=== PATIENT | female | born 1980 | race Caucasian/White ===

== ENCOUNTER 2020-05-28 17:47 | Inpatient (IN) | payer MEDICAID ==
[2020-05-28] MEDS ORDERED: METOCLOPRAMIDE 10 MG/2 ML INJ IV ONE (18:44)
[2020-05-28] MEDS ORDERED: BICITRA ORAL LIQD 30ML PO ONE (18:44)
[2020-05-28] MEDS ORDERED: FAMOTIDINE 20 MG/2 ML INJ IV ONE (18:44)
[2020-05-28] MEDS ORDERED: OXYTOCIN 20 UNIT/1000ML DRIP 20 UNITS/1,000 ML BAG IV SCH (19:00)
[2020-05-28] MEDS ORDERED: METHYLERGONOVINE MALEATE 0.2 MG/ML VIAL IM ONE ×2 (19:25)
[2020-05-28] MEDS ORDERED: ceFAZolin/STERILE WATER 2 GM/20 ML SYRINGE IV NR (20:00)
[2020-05-28] MEDS: LACTATED RINGERS 1,000 ML IV SCH ×2 (20:06→20:13)
--- NOTE | 2020-05-28 20:33 | History and Physical Report ---
History of Present Illness Date of examination: 05/28/20 Date of admission: May 28, 2020 Chief complaint: Spontaneous rupture of membranes at 37 weeks plus. History of present illness: previous sections. LEIGHTON June 12, 2020. Past History Past Surgical History: section - Obstetrical History Expected Date of Delivery: 06/12/20 Actual Gestation: 37 Week(s) 6 Day(s) : 6 Medications and Allergies Allergies Allergy/AdvReac Type Severity Reaction Status Date / Time No Known Allergies Allergy Verified 10/21/14 11:23 Home Medications Medication Instructions Recorded Confirmed Last Taken Type Iron 1 tab PO DAILY 10/21/14 05/28/20 05/24/20 21:00 History Ondansetron [Zofran] 4 mg PO Q6HR PRN 10/21/14 11/27/14 05/24/20 20:00 History Vits96/Iron Fum/Folic 1 each PO QDAY 10/21/14 05/28/20 05/24/20 History [ Tablet] Active Meds: Active Medications Cefazolin Sodium (Ancef/Sterile Water 2 Gm/20 Ml) 2 gm IV PREOP NR Stop: 05/29/20 06:00 Lactated Ringer's (Lactated Ringers) 1,000 mls @ 2,250 mls/hr IV PREOP ISAIAS Stop: 05/29/20 19:27 Last Admin: 05/28/20 20:13 Dose: 2,250 mls/hr Documented by: Oxytocin/Sodium Chloride (Pitocin/Ns 20 Unit/1000ml Drip) 20 units in 1,000 mls @ 0 mls/hr IV TITR ISAIAS Review of Systems All systems: negative - Vital Signs Vital signs: Vital Signs Pulse BP 78 114/72 05/28/20 18:09 05/28/20 18:09 Temp Pulse Resp BP Pulse Ox 97.6 F 76 18 123/77 96 05/28/20 18:40 05/28/20 20:20 05/28/20 18:40 05/28/20 20:15 05/28/20 20:20 - Physical Exam Lungs: Positive: Normal air movement Deep Tendon Reflex Grade: Normal +2 - Obstetrical FHR: auscultation normal Results All other labs normal. Assessment and Plan - Patient Problems (1) SROM (spontaneous rupture of membranes) Current Visit: Yes Status: Acute (2) Previous section Current Visit: No Status: Acute Plan to address problem: Patient will be delivered by section as soon as all arrangements are in place. All of patient's questions were answered. Potential for scar tissue formation and need for lysis of adhesions were discussed. Patient gave an informed consent for surgery.
[2020-05-28 20:37] LABS: Basophils # (Auto) 0.1 K/mm3 (0.0-0.1); Basophils % (Auto) 1.1 % (0.0-1.8); Eosinophils # (Auto) 0.2 K/mm3 (0.0-0.4); Eosinophils % (Auto) 1.5 % (0.0-4.3); Hematocrit 24.5 % (30.3-42.9); Lymphocytes # (Auto) 2.5 K/mm3 (1.2-5.4); Lymphocytes % (Auto) 21.5 % (13.4-35.0); Mean Corpuscular HGB Conc 33 % (30-34); Mean Corpuscular Volume 71 fl (79-97); Monocytes # (Auto) 1.3 K/mm3 (0.0-0.8); Monocytes % (Auto) 10.9 % (0.0-7.3); Platelet Count 220 K/mm3 (140-440); Red Blood Count 3.47 M/mm3 (3.65-5.03); Red Cell Distribution Width 15.8 % (13.2-15.2)
[2020-05-28] MEDS ORDERED: ONDANSETRON 4 MG/2 ML INJ ONE (23:45)
[2020-05-28] MEDS ORDERED: DEXMEDETOMIDINE 200 MCG/2 ML VIAL IV ONE (23:45)
[2020-05-28] MEDS ORDERED: KETOROLAC 30 MG/1 ML INJ ONE (23:45)
[2020-05-28] MEDS ORDERED: ceFAZolin/STERILE WATER 2 GM/20 ML SYRINGE IV ONE (23:50)
[2020-05-29] MEDS ORDERED: LANOLIN/ZINC/DIMETHICONE (LANSINOH) 7 GM TP PRN (00:27)
[2020-05-29] MEDS ORDERED: ONDANSETRON 4 MG/2 ML INJ IV PRN (00:27)
[2020-05-29] MEDS ORDERED: NALOXONE 0.4 MG/1 ML INJ IV PRN (00:27)
[2020-05-29] MEDS ORDERED: IBUPROFEN 800 MG TAB PO PRN (00:27)
[2020-05-29] MEDS ORDERED: WITCH HAZEL/ GLYCERIN PAD TP PRN (00:27)
--- NOTE | 2020-05-29 00:33 | Operative Report ---
Operative Report Operative Report: Date of surgery: May 28, 2020 Preoperative diagnoses: Spontaneous rupture of membranes at 38 weeks, 3 previous sections. Postoperative diagnoses: The same. Operation: Lower segment transverse delivery Surgeon:Leonila Quiles MD Sheet Metal Layout Mechanic: Leonila Cordova CRNA Anesthesia: Spinal block Estimated blood loss: 400 mL Complications: None Findings: There was a live baby girl in vertex presentation weight 6 pounds 4 ounces and 8/8 scores. The ovaries, fallopian tubes and the ut erus were all grossly normal. The urinary bladder was slightly pulled up against the lower uterine segment and proved difficult to free from a very thinned out lower uterine segment. Procedure in detail: The patient was taken to the operating room and given a spinal block. Patient was placed in the straight supine position and a Rand catheter was inserted. The patient was prepped in the abdomen. The drapes were placed. A timeout was done. With the go ahead from the retail sales associate bilingual, a Pfannenstiel incision was made. This incision was carried across the subcutaneous layer to the fascia which was also divided transversely. The recti abdominis muscle flaps were stripped from the fascia using a combination of blunt and sharp dissections. The muscles were in the midline to gain access to the anterior parietal peritoneum which was divided after excluding any underlying viscera. The access to the peritoneal cavity was then widened by manual stretching. The bladder blade was applied. The utero vesicle peritoneal flap was divided transversely allowing the bladder to be displaced caudally. The uterine incision was placed in the lower segment transversely. The uterine incision was carried to the decidual layer. The uterine incision was extended on both sides using the bandage scissors. The amniotic sac was ruptured with clear fluid. The head was lifted out of the false maternal pelvis and delivered through the incision using fundal pressure. The airways were bulb suctioned beginning with the mouth. Continuing fundal pressure combined with traction on the mandibular processes of the jaw delivered the rest of the baby. The umbilical cord was double clamped and divided. The baby was carefully transferred to the pediatric team. The placenta was manually removed from the uterine cavity. The uterine cavity was explored and was empty of any placental remnants. The uterine incision was repaired in 2 layers with #1 Vicryl. The surgical line on the uterus was hemostatic. Blood and clots were cleared from the peritoneal cavity. The anterior parietal peritoneum was repaired with #1 Vicryl. The fascia was repaired with #1 Vicryl. The subcutaneous layer was made hemostatic using the Bovie before the skin was closed subcuticularly with 4-0 Vicryl. There were no complications. The estimated blood loss was 400 mL. All sponges and instrument counts were correct. Patient was safely transferred to the recovery room.
--- NOTE | 2020-05-29 00:43 | Post Anesthesia Evaluation ---
- Post Anesthesia Evaluation Patient Participated: Yes Airway Patent: Yes Stable Respiratory Function: Yes Nausea/Vomiting: No Temp > 96.8F: Yes Pain Manageable: Yes Adequeate Hydration: Yes Anesthesia Complications: No Block Receding Appropriately: Yes
--- NOTE | 2020-05-29 00:43 | Anesthesia Day of Surgery ---
Anesthesia Day of Surgery - Day of Surgery Patient Examined: Yes Patient H&P Reviewed: Yes Patient is NPO: Yes
--- NOTE | 2020-05-29 00:43 | Anesthesia Consultation ---
Anesthesia Consult and Med Hx Date of service: 05/29/20 - Airway Anesthetic Teeth Evaluation: Good ROM Head & Neck: Adequate Mental/Hyoid Distance: Adequate Mallampati Class: Class II Intubation Access Assessment: Probably Good - Pulmonary Exam CTA: Yes - Cardiac Exam Cardiac Exam: RRR - Pre-Operative Health Status ASA Pre-Surgery Classification: ASA2 Proposed Anesthetic Plan: Spinal - Pulmonary Hx Asthma: No COPD: No Hx Pneumonia: No - Cardiovascular System Hx Hypertension: No - Central Nervous System Hx Seizures: No Hx Psychiatric Problems: No - Endocrine Hx Renal Disease: No Hx Hypothyroidism: No Hx Hyperthyroidism: No - Hematic Hx Anemia: No Hx Sickle Cell Disease: No - Other Systems Hx Alcohol Use: No
[2020-05-29] MEDS: MORPHINE 4 MG/1 ML INJ IV PRN ×3 (00:58→23:50)
[2020-05-29] MEDS ORDERED: D5W/LACTATED RINGERS 1,000 ML IV SCH (01:00)
[2020-05-29] MEDS ORDERED: OXYTOCIN 20 UNIT/1000ML DRIP 20 UNITS/1,000 ML BAG IV SCH ×2 (01:00→16:37)
[2020-05-29] MEDS: KETOROLAC 30 MG/1 ML INJ IV PRN ×2 (03:06→08:25)
[2020-05-29] MEDS: ceFAZolin/NS 1 GM/50 ML 1 GM/50 ML BAG IV SCH ×2 (03:16→20:40)
[2020-05-29] MEDS ORDERED: SODIUM CHLORIDE 0.9% 500 ML 500 ML IV ONE ×3 (05:12→09:42)
[2020-05-29 05:33] LABS: Hematocrit 15.5 % (30.3-42.9)
[2020-05-29] MEDS ORDERED: METHYLERGONOVINE MALEATE 0.2 MG/ML VIAL IM ONE ×2 (05:34→05:49)
[2020-05-29 07:22] LABS: Hematocrit 23.8 % (30.3-42.9); Hemoglobin 7.9 gm/dl (10.1-14.3)
[2020-05-29] MEDS: 1: FOLIC ACID 1 MG, MULTIPLE VITAMIN INJ, ADULT 10 ML, THIAMINE 100 MG in SODIUM CHLORID IV SCH ×3 (07:49→16:43)
[2020-05-29] MEDS ORDERED: OXYTOCIN 20 UNIT/1000ML DRIP 0 MILLIUNITS/0 ML BAG IV ONE (09:35)
[2020-05-29] MEDS ORDERED: METHYLERGONOVINE MALEATE 0.2 MG/ML VIAL IM PRN (09:43)
[2020-05-29] MEDS ORDERED: METHYLERGONOVINE MALEATE 0.2 MG/ML VIAL IM SCH (10:00)
[2020-05-29] MEDS ORDERED: SODIUM CHLORIDE 0.9% 500 ML 500 ML IV NR (11:45)
[2020-05-29] MEDS ORDERED: SODIUM CHLORIDE 0.9% 500 ML 500 ML IV SCH ×3 (12:00→16:05)
[2020-05-29] MEDS ORDERED: FUROSEMIDE 20 MG/2 ML INJ IV ONE (13:00)
--- NOTE | 2020-05-29 15:39 | Event Note ---
Date: 05/29/20 I was called from the floor by Dinorah Dennis CNM at 11:20 for report on the patient. She reported the patient to be hypotensive and diaphoretic and asked for my immediate evaluation. I presented from the office within 10 minutes. At bedside, with Ms Dennis. patient was hyper-somnolent but easily arousable, oriented to person , place and time. Her nurse was at bedside. BP 85/50, P111 Urine output: 125cc clear since her operative delivery last night (minimal,concentrated) I ordered patient to have O2 per face mask and asked the nurse to please call for help. I ordered a second IV for access. I ordered patient to be transfused another three units of PRBC's STAT. A third provider went to the blood bank for a unit of PRBC's immediately. I ordered patient to have LR IV bolus in second IV immediately. I ordered continuous pulse ox and BP's Q5 minutes. We were unable to obtain a body temp at bedside. Peripheral pulses thready but present bilaterally. PE revealed a firm fundus I removed the wound dressing and her pfannenstiel incision was dry. Bimanual revealed about 250ml blood clot in the uterus She was transferred to labor and delivery. Her third unit of blood was hanging prior to transfer. On labor and delivery with at least 1:1 nursing and myself at bedside continuously: PRBCs transfused x 6 units 1 liter LR bolus then 10mg Lasix IV given; after ~30 minutes 300ml clear urine noted in the stewart catheter. Cryoprecipitate transfused after 6th unit PRBCs Fluids running wide open Methergine 0.2mg given IMx1 dose. LR changed to oxytocin 20 units in 1000ml NS After the fifth unit or PRBC"s persistent atony and large VB noted to ~1000ml. At this point I paged IR for UAE and possible hysterectomy CMC,CMP and coags sent Dr Angel at bedside to consent patient within minutes of our phone conversation. Anesthesia at bedside. Patient hemodynamically stable: BP 130/77, P76 Temp 98.1,O2 sat 100% on room air. Leonila Ordoñez MD
[2020-05-29] MEDS: fentaNYL 100 MCG/2 ML INJ IV PRN (16:06)
[2020-05-29] MEDS ORDERED: miSOPROStol 200 MCG TAB PR ONE (16:15)
--- NOTE | 2020-05-29 16:15 | Event Note ---
Date: 05/29/20 I was called to the room for large clots expressed total weight 419ftn=673.15 ML intermittent atony Plan for interventional radiology for UAE Cytotec 800m,cg per rectum Leonila Ordoñez MD
[2020-05-29] MEDS ORDERED: miSOPROStol 200 MCG TAB ONE (16:19)
[2020-05-29] MEDS ORDERED: OXYTOCIN 10 UNIT/1 ML INJ ONE (16:38)
[2020-05-29] MEDS ORDERED: OXYTOCIN 10 UNIT/1 ML INJ IM ONE (16:38)
[2020-05-29 17:05] LABS: Hematocrit 28.4 % (30.3-42.9); Hemoglobin 9.5 gm/dl (10.1-14.3); Mean Corpuscular HGB Conc 33 % (30-34); Mean Corpuscular Volume 85 fl (79-97); Red Blood Count 3.33 M/mm3 (3.65-5.03); Red Cell Distribution Width 18.7 % (13.2-15.2)
[2020-05-29] MEDS ORDERED: MIDAZOLAM 5 MG/5 ML INJ MDV IV ONE (17:10)
[2020-05-29] MEDS ORDERED: fentaNYL 100 MCG/2 ML INJ ONE (17:10)
[2020-05-29 17:18] LABS: Alanine Aminotransferase 8 units/L (7-56); Albumin 2.6 g/dL (3.9-5); BUN/Creatinine Ratio 16; Blood Urea Nitrogen 11 mg/dL (7-17); Calcium 6.9 mg/dL (8.4-10.2); Hemolysis Index 8; INR 1.18 (0.87-1.13)
[2020-05-29 17:19] LABS: Partial Thromboplastin Time 27.3 Sec. (24.2-36.6)
[2020-05-29] MEDS: HEPARIN/NS 5000 UNIT/500ML 500 ML IR ONE ×2 (17:20→17:52)
[2020-05-29 17:24] LABS: Platelet Count 67 K/mm3 (140-440)
[2020-05-29] MEDS: LIDOCAINE (2%) 20 MG/1 ML VIAL 20 ML MDV INFILTRATI ONE ×3 (17:25→18:19)
[2020-05-29] MEDS ORDERED: ceFAZolin/STERILE WATER 2 GM/20 ML SYRINGE IV ONE (17:25)
[2020-05-29] MEDS: VERAPAMIL 5 MG/2 ML INJ ONE ×2 (17:27→17:57)
[2020-05-29] MEDS: NITROGLYCERIN SYRINGE 3 ML ONE ×2 (17:27→17:45)
[2020-05-29] MEDS: GELATIN SPONGE SIZE 50 TP ONE ×2 (17:45→17:51)
[2020-05-29] MEDS ORDERED: GELATIN SPONGE SIZE 50 TP ONE (17:52)
[2020-05-29] MEDS ORDERED: MIDAZOLAM 2 MG/2 ML INJ ONE (18:06)
--- NOTE | 2020-05-29 18:44 | Consultation ---
History of Present Illness - Reason for Consult Consult date: 05/29/20 bleeding Requesting physician: ALTON DURAN - History of Present Illness 39 year old female s/p C section with multiple prior C sections with uterine atony and bleeding. Patient required multiple packed red blood cell unit transfusions and previously was hypotensive, tachycardic, with hemoglobin of 5. She was resuscitated with blood products. She then began having uterine/vaginal bleeding. Interventional radiology was then consulted for possible uterine artery embolization. previous sections. Past History Past Surgical History: section - Obstetrical History Expected Date of Delivery: 06/12/20 Actual Gestation: 37 Week(s) 6 Day(s) : 6 Past History Past Medical History: No medical history Past Surgical History: Social history: Family history: no significant family history Medications and Allergies Allergies Allergy/AdvReac Type Severity Reaction Status Date / Time No Known Allergies Allergy Verified 10/21/14 11:23 Home Medications Medication Instructions Recorded Confirmed Last Taken Type Iron 1 tab PO DAILY 10/21/14 05/28/20 05/24/20 21:00 History Ondansetron [Zofran] 4 mg PO Q6HR PRN 10/21/14 11/27/14 05/24/20 20:00 History Vits96/Iron Fum/Folic 1 each PO QDAY 10/21/14 05/28/20 05/24/20 History [ Tablet] HYDROcodone/APAP 5-325 [[place] 1 - 2 each PO Q6HR PRN #30 tablet 05/28/20 Unknown Rx 5/325] Active Meds: Active Medications Acetaminophen (Tylenol) 650 mg PO Q4H PRN PRN Reason: Fever >100.5/[place] Acetaminophen/Hydrocodone Bitart ([place] 5/325) 1 each PO Q6H PRN PRN Reason: Pain, Moderate (4-6) Fentanyl (Sublimaze) 50 mcg IV Q4HR PRN PRN Reason: Pain, Moderate (4-6) Last Admin: 05/29/20 16:06 Dose: 50 mcg Documented by: Ferrous Sulfate (Feosol) 325 mg PO QDAY [facility] Folic Acid 1 mg/ Multivitamins /Minerals 10 ml/ Thiamine HCl 100 mg/ Sodium Chloride 1,000 mls @ 125 mls/hr IV .BY DURATION [facility] Last Admin: 05/29/20 07:49 Dose: 125 mls/hr Documented by: Sodium Chloride (Nacl 0.9% 1000 Ml) 1,000 mls @ 125 mls/hr IV .BY DURATION [facility] Last Admin: 05/29/20 16:43 Dose: 125 mls/hr Documented by: Sodium Chloride (Nacl 0.9% 500 Ml) 500 mls @ 0 mls/hr IV ONCE NR Stop: 05/29/20 23:59 Sodium Chloride (Nacl 0.9% 1000 Ml) 1,000 mls @ 125 mls/hr IV DIRECT ISAIAS Sodium Chloride (Nacl 0.9% 500 Ml) 500 mls @ 0 mls/hr IV ONCE ISAIAS Stop: 05/30/20 16:03 Sodium Chloride (Nacl 0.9% 500 Ml) 500 mls @ 0 mls/hr IV ONCE ISAIAS Stop: 05/30/20 16:04 Oxytocin/Sodium Chloride (Pitocin/Ns 20 Unit/1000ml Drip) 20 units in 1,000 mls @ 250 mls/hr IV DIRECT ISAIAS Ibuprofen (Ibuprofen) 800 mg PO Q6H PRN PRN Reason: Pain, Mild (1-3) Ketorolac Tromethamine (Toradol) 30 mg IV Q6H PRN PRN Reason: Pain, Moderate (4-6) Stop: 06/03/20 00:26 Last Admin: 05/29/20 08:25 Dose: 30 mg Documented by: Methylergonovine Maleate (Methergine) 0.2 mg IM Q4H PRN PRN Reason: Uterine Bleeding Last Admin: 05/29/20 10:36 Dose: 0.2 mg Documented by: Morphine Sulfate (Morphine) 4 mg IV Q4H PRN PRN Reason: Pain , Severe (7-10) Last Admin: 05/29/20 00:58 Dose: 4 mg Documented by: Multi-Ingredient Ointment (Lansinoh) 1 applic TP PRN PRN PRN Reason: dryness/cracking Multivitamins/Iron/Calcium ( Vitamin) 1 each PO QDAY [facility] Naloxone HCl (Naloxone) 0.1 mg IV Q2MIN PRN PRN Reason: Res Rate </= 8 or 02 SAT < 92% Ondansetron HCl (Zofran) 4 mg IV Q8H PRN PRN Reason: Nausea And Vomiting Sodium Chloride (Sodium Chloride Flush Syringe 10 Ml) 10 ml IV PRN PRN PRN Reason: LINE FLUSH Witch Lauren/Glycerin (Tucks Pad) 1 each TP PRN PRN PRN Reason: Hemorrhoids/cleansing/soothing Review of Systems All systems: negative (see HPI) Exam - Constitutional Vitals: Temp Pulse Resp BP Pulse Ox 98.1 F 79 16 130/78 100 05/29/20 16:25 05/29/20 16:55 05/29/20 16:25 05/29/20 16:55 05/29/20 16:54 General appearance: Present: no acute distress - EENT Eyes: Present: EOM intact ENT: hearing intact - Respiratory Respiratory effort: normal - Abdominal General gastrointestinal: Present: tender (abdominal pain) - Psychiatric Psychiatric: appropriate mood/affect, cooperative Results - Labs CBC & Chem 7: 05/29/20 16:29 05/29/20 16:29 Labs: Abnormal lab results 05/28/20 05/28/20 05/29/20 Range/Units 19:45 19:45 05:20 WBC 11.5 H (4.5-11.0) K/mm3 RBC 3.47 L (3.65-5.03) M/mm3 Hgb 8.0 L 5.0 L* D (10.1-14.3) gm/dl Hct 24.5 L 15.5 L* D (30.3-42.9) % MCV 71 L (79-97) fl MCH 23 L (28-32) pg RDW 15.8 H (13.2-15.2) % Plt Count (140-440) K/mm3 [place] % (Auto) 10.9 H (0.0-7.3) % [place] # 1.3 H (0.0-0.8) K/mm3 INR (0.87-1.13) Fibrinogen (211-480) mg/dl Sodium (137-145) mmol/L Carbon Dioxide (22-30) mmol/L Calcium (8.4-10.2) mg/dL Total Protein (6.3-8.2) g/dL Albumin (3.9-5) g/dL Crossmatch See Detail 05/29/20 05/29/20 05/29/20 Range/Units 06:45 16:29 16:29 WBC 29.1 H (4.5-11.0) K/mm3 RBC 3.33 L (3.65-5.03) M/mm3 Hgb 7.9 L 9.5 L (10.1-14.3) gm/dl Hct 23.8 L D 28.4 L (30.3-42.9) % MCV (79-97) fl MCH (28-32) pg RDW 18.7 H (13.2-15.2) % Plt Count 67 L (140-440) K/mm3 [place] % (Auto) (0.0-7.3) % [place] # (0.0-0.8) K/mm3 INR 1.18 H (0.87-1.13) Fibrinogen 167 L (211-480) mg/dl Sodium (137-145) mmol/L Carbon Dioxide (22-30) mmol/L Calcium (8.4-10.2) mg/dL Total Protein (6.3-8.2) g/dL Albumin (3.9-5) g/dL Crossmatch 05/29/20 Range/Units 16:29 WBC (4.5-11.0) K/mm3 RBC (3.65-5.03) M/mm3 Hgb (10.1-14.3) gm/dl Hct (30.3-42.9) % MCV (79-97) fl MCH (28-32) pg RDW (13.2-15.2) % Plt Count (140-440) K/mm3 [place] % (Auto) (0.0-7.3) % [place] # (0.0-0.8) K/mm3 INR (0.87-1.13) Fibrinogen (211-480) mg/dl Sodium 134 L (137-145) mmol/L Carbon Dioxide 19 L (22-30) mmol/L Calcium 6.9 L D (8.4-10.2) mg/dL Total Protein 4.1 L D (6.3-8.2) g/dL Albumin 2.6 L (3.9-5) g/dL Crossmatch Assessment and Plan 39-year-old female with severe hemorrhage after c section requiring resuscitation and subsequently IR was consulted. Given bleeding, options are hysterectomy (emergent) or UAE with gelfoam. R/B/A discussed with patient. Gelfoam UAE decided upon with input from VTC TECHNICIAN, patient, and IR. Plan for embolization. Post embolization syndrome can consist of abdominal pain managed with opiates, low grade fever, and nausea/vomiting.
[2020-05-29] MEDS ORDERED: HYDROmorphone 1 MG/1 ML INJ ONE (18:46)
--- NOTE | 2020-05-29 18:54 | Post Operative Note ---
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 Ultrasound guided access of the left radial artery. 2. Selection of the left internal iliac artery with angiography 3. Selection of the left uterine artery with angiography 4. Gelfoam embolization of the left uterine artery. 5. Selection of the right common iliac artery with angiography 6. Selection of the right internal iliac artery with angiography 7. Selection of the right uterine artery with angiography 8. Gelfoam embolization of the right uterine artery 9. Ultrasound guided access of the left common femoral vein 10. Fluoroscopic guided placement of a 7 Fr triple lumen catheter Anesthesia: MAC Surgeon: MAY CAMERON Estimated blood loss: minimal Condition: stable Disposition: ICU
--- NOTE | 2020-05-29 18:54 | Operative Report ---
Operative Report Operative Report: EXAM: 1. Ultrasound guided access of the left radial artery. 2. Selection of the left internal iliac artery with angiography 3. Selection of the left uterine artery with angiography 4. Gelfoam embolization of the left uterine artery. 5. Selection of the right common iliac artery with angiography 6. Selection of the right internal iliac artery with angiography 7. Selection of the right uterine artery with angiography 8. Gelfoam embolization of the right uterine artery 9. Ultrasound guided access of the left common femoral vein 10. Fluoroscopic guided placement of a 7 Fr triple lumen catheter DATE: 05/29/2820 CASH CHECKER: MAY CAMERON MD INDICATION: Severe hemorrhage with severe anemia with hemodynamic compromise, successfully resuscitated, and now presenting for uterine artery embolization to prevent further hemorrhage. MEDICATIONS: Please see nursing report for full details. ANESTHESIA: MAC DEVICES: Gelfoam 7 [place] triple-lumen non-tunneled non-cuffed catheter CONTRAST: Please see Quality Assurance Test Program Manager notes for full details. PROCEDURE: The risks, benefits, and alternatives were discussed with the patient; written informed consent was obtained. The patient's groins and left wrist were prepped and draped in a sterile fashion. The left radial artery was evaluated with ultrasound and was patent. Under direct ultrasound guidance, the left radial artery was accessed with a 21-gauge micropuncture needle. 0.018 inch wire was passed into the radial artery. Needle was exchanged for a 4/5 glidesheath slender sheath. Radial cocktail was then administered without the heparin (verapamil and nitroglycerin). At this point, a 0.035 inch wire was passed into the ascending thoracic aorta and a pigtail catheter was advanced over the wire and used to pass the wire into the descending thoracic aorta. Pigtail catheter was removed and exchanged for a 125 cm MPA 2 catheter which was then used to select the left internal iliac artery and digital subtraction angiography was performed. Digital subtraction angiography demonstrated normal branching of the internal iliac artery with a significantly hypertrophic uterine artery compatible with immediate state. There was significant tortuosity of the uterine arteries. Renegade Hi-PILAR microcatheter was then passed coaxially with the use of a 0.014 inch Choice PT floppy wire which was then used to select the left uterine artery at the horizontal portion of the vessel. Digital subtraction angiography was p erformed confirming position within the left uterine artery which was significantly hypertrophic with robust flow. No extravasation or pseudoaneurysm noted. Gelfoam embolization was performed and intermittent injections were performed until there was stasis of the left uterine artery. After this was achieved, the microcatheter was removed, and digital subtraction angiography through the base catheter demonstrated sluggish flow through the left uterine artery consistent with Gelfoam embolization. At this point, the base catheter was then used to select the right common iliac artery and digital subtraction angiography was performed demonstrating patency of the right common iliac artery, external iliac artery, and internal iliac artery with takeoff of the internal iliac artery noted. Catheter was used to select the right internal iliac artery and digital subtraction angiography was noted demonstrating relatively normal branching pattern with a hypertrophic uterine artery with a pseudoaneurysm arising from the proximal uterine artery approximately 15 to 20 cm after takeoff. Renegade Hi-PILAR microcatheter was then passed coaxially with the use of a 0.014 inch Choice PT floppy wire which was then used to select the right uterine artery at the horizontal portion of the vessel. Digital subtraction angiography was performed confirming position within the right uterine artery again demonstrating the right uterine artery pseudoaneurysm. Gelfoam embolization was then performed until complete stasis of the vessel was achieved. This was done due to the proximal right uterine essie ry pseudoaneurysm noted above. There was stasis of the right uterine artery proximal and distal to the pseudoaneurysmal segment. After stasis of the uterine artery was obtained, the microcatheter was removed. Digital subtraction angiography was performed to the base catheter demonstrating complete stasis of the right uterine artery. At this point, the intervention was complete. The catheter was flushed with saline, and all wires, catheters, and sheaths were removed and TR band was applied. The left groin was evaluated with ultrasound and the left common femoral vein was patent. Under direct ultrasound guidance, the left common femoral vein was accessed with a 21-gauge micropuncture needle. 0.018 inch wire was passed into the IVC. Needle was exchanged for transitional dilator. Wire was exchanged for a 0.035 inch wire. Transitional dilator was exchanged for a 7 [place] non- tunneled non-cuffed triple-lumen catheter after serial dilatation. Catheter was placed under fluoroscopic guidance. All ports were aspirated and flushed. Catheter was secured with 2-0 Ethilon. Sterile dressing and Biopatch applied. At this point, the patient was transferred to the ICU. Patient tolerated procedure well. No immediate postprocedural complication. FINDINGS: Please see procedure note above. IMPRESSION: Successful Gelfoam embolization of the bilateral uterine arteries with bilateral uterine artery selection. Successful left triple-lumen catheter placement under fluoroscopic and sonographic guidance.
[2020-05-29 19:58] LABS: Basophils % (Manual) 0 % (0.0-1.8); Eosinophils % (Manual) 0 % (0.0-4.3); Total Cells Counted 100
[2020-05-29 19:59] LABS: Macrocytosis Few; Schistocytes Rare
--- NOTE | 2020-05-29 19:59 | Event Note ---
Date: 05/29/20 Stable to ICU after UAE See Dr Angel's operative report Report given to ICU nurse plan for transfusion of FFP then repeat labs Hold remaining blood products. Pt AAOx3, hemodynamically stable Plan for pain control, close monitoring. Leonila Ordoñez MD
[2020-05-29 20:00] LABS: Anisocytosis 1+; Platelet Estimate Consistent w Auto; Tear Drop Cells Rare
[2020-05-29] MEDS: PRENATAL VIT27-FE FUMARATE-FOLIC ACID VIT TAB PO SCH (20:42)
[2020-05-29] MEDS: FERROUS SULFATE 325 MG TAB PO SCH (20:42)
--- NOTE | 2020-05-29 20:52 | Post Anesthesia Evaluation ---
- Post Anesthesia Evaluation Patient Participated: Yes Airway Patent: Yes Stable Respiratory Function: Yes Nausea/Vomiting: No Temp > 96.8F: Yes Pain Manageable: Yes Adequeate Hydration: Yes Anesthesia Complications: No Block Receding Appropriately: Not Applicable Patient on Ventilator: No
[2020-05-30] MEDS: SODIUM CHLORIDE 0.9% 1000 ML 1,000 ML IV SCH ×2 (00:49→00:51)
[2020-05-30] MEDS: OXYTOCIN 20 UNIT/1000ML DRIP 20 UNITS/1,000 ML BAG IV SCH ×2 (00:50→09:02)
[2020-05-30] MEDS: 1: FOLIC ACID 1 MG, MULTIPLE VITAMIN INJ, ADULT 10 ML, THIAMINE 100 MG in SODIUM CHLORID IV SCH ×3 (00:52→18:49)
[2020-05-30 01:07] LABS: Hematocrit 21.3 % (30.3-42.9); Hemoglobin 7.2 gm/dl (10.1-14.3)
[2020-05-30] MEDS: MORPHINE 4 MG/1 ML INJ IV PRN ×4 (04:33→18:48)
[2020-05-30 07:17] LABS: Basophils % (Auto) 0.1 % (0.0-1.8); Hematocrit 20.6 % (30.3-42.9); Hemoglobin 6.8 gm/dl (10.1-14.3); Lymphocytes # (Auto) 1.3 K/mm3 (1.2-5.4); Lymphocytes % (Auto) 6.7 % (13.4-35.0); Mean Corpuscular HGB Conc 33 % (30-34); Mean Corpuscular Volume 85 fl (79-97); Monocytes # (Auto) 1.8 K/mm3 (0.0-0.8); Monocytes % (Auto) 9.1 % (0.0-7.3); Red Blood Count 2.42 M/mm3 (3.65-5.03); Red Cell Distribution Width 17.7 % (13.2-15.2)
[2020-05-30 07:28] LABS: Platelet Count 59 K/mm3 (140-440)
[2020-05-30 07:36] LABS: Alanine Aminotransferase 6 units/L (7-56); Albumin 2.4 g/dL (3.9-5); BUN/Creatinine Ratio 13; Blood Urea Nitrogen 8 mg/dL (7-17); Calcium 6.7 mg/dL (8.4-10.2); Hemolysis Index 9
[2020-05-30] MEDS ORDERED: SODIUM CHLORIDE 0.9% 500 ML 500 ML IV NR (07:47)
[2020-05-30] MEDS: HYDROcodone/ACETAMINOPHEN 5-325 MG TAB PO PRN ×2 (08:27→17:17)
[2020-05-30] MEDS: levoFLOXacin 500 MG TAB PO SCH (09:00)
[2020-05-30] MEDS: FERROUS SULFATE 325 MG TAB PO SCH (09:00)
[2020-05-30] MEDS: PRENATAL VIT27-FE FUMARATE-FOLIC ACID VIT TAB PO SCH (09:01)
--- NOTE | 2020-05-30 13:28 | Consultation ---
History of Present Illness Consult date: 05/30/20 Requesting physician: MAY CAMERON Reason for consult: other (Acute Blood Loss Anemia; s/p Uteriune Artery Embolization) History of present illness: PCCM CONSULT NOTE (Full dictation # [id number]) Please see dictated notes for full details Past History Past Medical History: No medical history Past Surgical History: Social history: Family history: no significant family history Medications and Allergies Allergies Allergy/AdvReac Type Severity Reaction Status Date / Time No Known Allergies Allergy Verified 10/21/14 11:23 Home Medications Medication Instructions Recorded Confirmed Last Taken Type Iron 1 tab PO DAILY 10/21/14 05/28/20 05/24/20 21:00 History Ondansetron [Zofran] 4 mg PO Q6HR PRN 10/21/14 11/27/14 05/24/20 20:00 History Vits96/Iron Fum/Folic 1 each PO QDAY 10/21/14 05/28/20 05/24/20 History [ Tablet] HYDROcodone/APAP 5-325 [[place] 1 - 2 each PO Q6HR PRN #30 tablet 05/28/20 Unknown Rx 5/325] Active Meds: Active Medications Acetaminophen (Tylenol) 650 mg PO Q4H PRN PRN Reason: Fever >100.5/[place] Acetaminophen/Hydrocodone Bitart ([place] 5/325) 1 each PO Q6H PRN PRN Reason: Pain, Moderate (4-6) Last Admin: 05/30/20 08:27 Dose: 1 each Documented by: Fentanyl (Sublimaze) 50 mcg IV Q4HR PRN PRN Reason: Pain, Moderate (4-6) Last Admin: 05/29/20 16:06 Dose: 50 mcg Documented by: Ferrous Sulfate (Feosol) 325 mg PO QDAY [facility] Last Admin: 05/30/20 09:00 Dose: 325 mg Documented by: Folic Acid 1 mg/ Multivitamins /Minerals 10 ml/ Thiamine HCl 100 mg/ Sodium Chloride 1,000 mls @ 125 mls/hr IV .BY DURATION [facility] Last Admin: 05/30/20 10:29 Dose: 125 mls/hr Documented by: Sodium Chloride (Nacl 0.9% 1000 Ml) 1,000 mls @ 125 mls/hr IV .BY DURATION [facility] Last Admin: 05/30/20 00:52 Dose: Not Given Documented by: Sodium Chloride (Nacl 0.9% 1000 Ml) 1,000 mls @ 125 mls/hr IV DIRECT [facility] Last Admin: 05/30/20 00:51 Dose: 125 mls/hr Documented by: Oxytocin/Sodium Chloride (Pitocin/Ns 20 Unit/1000ml Drip) 20 units in 1,000 mls @ 125 mls/hr IV DIRECT ISAIAS Last Admin: 05/30/20 09:02 Dose: 125 mls/hr Documented by: Sodium Chloride (Nacl 0.9% 500 Ml) 500 mls @ 0 mls/hr IV ONCE NR Stop: 05/30/20 23:59 Last Admin: 05/30/20 08:29 Dose: 10 mls/hr Documented by: Ibuprofen (Ibuprofen) 800 mg PO Q6H PRN PRN Reason: Pain, Mild (1-3) Levofloxacin (Levaquin) 500 mg PO Q24HR [facility] Last Admin: 05/30/20 09:00 Dose: 500 mg Documented by: Methylergonovine Maleate (Methergine) 0.2 mg IM Q4H PRN PRN Reason: Uterine Bleeding Last Admin: 05/29/20 10:36 Dose: 0.2 mg Documented by: Morphine Sulfate (Morphine) 4 mg IV Q4H PRN PRN Reason: Pain , Severe (7-10) Last Admin: 05/30/20 10:28 Dose: 4 mg Documented by: Multi-Ingredient Ointment (Lansinoh) 1 applic TP PRN PRN PRN Reason: dryness/cracking Multivitamins/Iron/Calcium ( Vitamin) 1 each PO QDAY [facility] Last Admin: 05/30/20 09:01 Dose: 1 each Documented by: Naloxone HCl (Naloxone) 0.1 mg IV Q2MIN PRN PRN Reason: Res Rate </= 8 or 02 SAT < 92% Ondansetron HCl (Zofran) 4 mg IV Q8H PRN PRN Reason: Nausea And Vomiting Sodium Chloride (Sodium Chloride Flush Syringe 10 Ml) 10 ml IV PRN PRN PRN Reason: LINE FLUSH Witch Lauren/Glycerin (Tucks Pad) 1 each TP PRN PRN PRN Reason: Hemorrhoids/cleansing/soothing Physical Examination Vital signs: Vital Signs Pulse BP 78 114/72 05/28/20 18:09 05/28/20 18:09 Results - Laboratory Findings CBC and BMP: 05/30/20 06:00 05/30/20 06:00 PT/INR, D-dimer PT 14.8 Sec. (12.2-14.9) 05/29/20 16:29 INR 1.18 (0.87-1.13) H 05/29/20 16:29 Abnormal lab findings: Abnormal Labs 05/28/20 05/28/20 05/29/20 19:45 19:45 05:20 WBC 11.5 H RBC 3.47 L Hgb 8.0 L 5.0 L* D Hct 24.5 L 15.5 L* D MCV 71 L MCH 23 L RDW 15.8 H Plt Count Lymph % (Auto) [place] % (Auto) 10.9 H [place] # 1.3 H Seg Neutrophils % Seg Neuts % (Manual) Lymphocytes % (Manual) Seg Neutrophils # Seg Neutrophils # Man Monocytes # (Manual) INR Fibrinogen Sodium Carbon Dioxide Creatinine Glucose Calcium ALT Total Protein Albumin Crossmatch See Detail 05/29/20 05/29/20 05/29/20 06:45 16:29 16:29 WBC 29.1 H RBC 3.33 L Hgb 7.9 L 9.5 L Hct 23.8 L D 28.4 L MCV MCH RDW 18.7 H Plt Count 67 L Lymph % (Auto) [place] % (Auto) [place] # Seg Neutrophils % Seg Neuts % (Manual) 89.0 H Lymphocytes % (Manual) 4.0 L Seg Neutrophils # Seg Neutrophils # Man 25.9 H Monocytes # (Manual) 1.7 H INR 1.18 H Fibrinogen 167 L Sodium Carbon Dioxide Creatinine Glucose Calcium ALT Total Protein Albumin Crossmatch 05/29/20 05/30/20 05/30/20 16:29 00:50 06:00 WBC 20.0 H RBC 2.42 L Hgb 7.2 L 6.8 L Hct 21.3 L D 20.6 L MCV MCH RDW 17.7 H Plt Count 59 L Lymph % (Auto) 6.7 L [place] % (Auto) 9.1 H [place] # 1.8 H Seg Neutrophils % 84.1 H Seg Neuts % (Manual) Lymphocytes % (Manual) Seg Neutrophils # 16.9 H Seg Neutrophils # Man Monocytes # (Manual) INR Fibrinogen Sodium 134 L Carbon Dioxide 19 L Creatinine Glucose Calcium 6.9 L D ALT Total Protein 4.1 L D Albumin 2.6 L Crossmatch 05/30/20 06:00 WBC RBC Hgb Hct MCV MCH RDW Plt Count Lymph % (Auto) [place] % (Auto) [place] # Seg Neutrophils % Seg Neuts % (Manual) Lymphocytes % (Manual) Seg Neutrophils # Seg Neutrophils # Man Monocytes # (Manual) INR Fibrinogen Sodium Carbon Dioxide 20 L Creatinine 0.6 L Glucose 111 H Calcium 6.7 L ALT 6 L Total Protein 4.1 L Albumin 2.4 L Crossmatch
[2020-05-30 14:11] LABS: Hematocrit 21.8 % (30.3-42.9); Hemoglobin 7.3 gm/dl (10.1-14.3); Mean Corpuscular HGB Conc 34 % (30-34); Mean Corpuscular Volume 87 fl (79-97); Platelet Count 69 K/mm3 (140-440); Red Blood Count 2.52 M/mm3 (3.65-5.03)
--- NOTE | 2020-05-30 16:36 | Progress Note ---
Assessment and Plan - Patient Problems (1) S/P section Current Visit: Yes Status: Acute Plan to address problem: stable and much improved today. Appreciate care from CCU team. Once cleared from them, pt will be transferred back to Mother/Baby Unit. (2) Anemia Current Visit: Yes Status: Acute Plan to address problem: stable s/p UFE and no longer dropping. Await repeat CBC results (3) Thrombocytopenia Current Visit: Yes Status: Acute Plan to address problem: Still thrombocytopenic but plts have stabilized and slightly improved with repeat levels earlier this afternoon. Cont to follow. Subjective - Subjective Date of service: 05/30/20 Interval history: PT states that she is feeling better than yesterday since UFE. No significantly heavy VB noted. PT also got PRBC and plts this am. No anemic sxs. Po tolerated. Small amount of flatus. No F/C/N/V/CP/SOB. PT has stewart. Objective - Vital Signs Latest vital signs: Vital Signs Temp Pulse Pulse Pulse Pulse Resp BP 05/30/20 16:00 73 88 84 21 117/70 05/30/20 15:45 71 24 119/70 05/30/20 15:30 82 22 122/74 05/30/20 15:15 78 22 118/71 05/30/20 15:00 79 22 112/71 05/30/20 14:45 87 24 118/73 05/30/20 14:42 98.7 F 05/30/20 14:30 81 19 114/74 05/30/20 14:15 98.9 F 82 19 120/72 05/30/20 14:00 87 20 120/74 05/30/20 13:45 94 H 20 132/73 05/30/20 13:30 87 24 122/78 05/30/20 13:23 98.9 F 05/30/20 13:15 70 20 120/68 05/30/20 13:00 74 14 117/68 05/30/20 12:45 77 19 109/72 05/30/20 12:30 77 23 117/70 05/30/20 12:15 76 13 116/64 05/30/20 12:00 93 H 84 84 22 109/67 05/30/20 11:45 70 20 112/70 05/30/20 11:30 77 24 114/69 05/30/20 11:15 68 20 107/72 05/30/20 11:00 73 22 114/71 05/30/20 10:45 66 21 110/72 05/30/20 10:30 80 19 113/68 05/30/20 10:15 76 23 115/74 05/30/20 10:00 86 25 H 114/66 05/30/20 09:45 88 22 125/78 05/30/20 09:30 87 23 124/78 05/30/20 09:15 82 25 H 125/76 05/30/20 09:00 95 H 20 126/79 05/30/20 08:45 86 20 107/69 05/30/20 08:42 98.5 F 05/30/20 08:30 84 22 117/66 05/30/20 08:15 87 16 110/65 05/30/20 08:00 99 H 71 71 22 122/62 05/30/20 07:45 87 22 113/62 05/30/20 07:30 91 H 16 122/71 05/30/20 07:20 98.5 F 05/30/20 07:15 84 19 119/67 05/30/20 07:00 72 20 119/65 05/30/20 06:45 76 21 124/70 05/30/20 06:30 74 22 118/67 05/30/20 06:15 75 20 116/70 05/30/20 06:00 73 21 122/69 05/30/20 05:45 73 21 118/67 05/30/20 05:30 77 22 116/71 05/30/20 05:15 80 23 117/74 05/30/20 05:00 91 H 21 107/67 05/30/20 04:46 96 H 22 108/71 05/30/20 04:30 87 28 H 108/71 05/30/20 04:15 86 23 112/71 05/30/20 04:00 98.8 F 79 79 76 22 126/81 08 03:45 99 H 22 126/81 05/30/20 03:30 87 20 119/72 05/30/20 03:15 79 22 114/69 05/30/20 03:00 77 22 116/69 05/30/20 02:45 78 22 124/71 05/30/20 02:30 75 21 122/68 05/30/20 02:15 98 H 24 120/78 05/30/20 02:00 78 22 123/71 05/30/20 01:45 86 20 118/72 05/30/20 01:30 77 20 116/72 05/30/20 01:15 75 21 133/66 05/30/20 01:00 71 17 123/68 05/30/20 00:45 93 H 22 121/74 05/30/20 00:30 74 19 118/70 05/30/20 00:15 80 19 116/76 05/30/20 00:02 83 21 120/71 05/30/20 00:00 98.3 F 76 19 115/74 05/29/20 23:56 78 21 120/71 05/29/20 23:45 78 20 120/71 05/29/20 23:30 89 20 119/76 05/29/20 23:15 77 21 121/74 05/29/20 23:00 72 22 122/74 05/29/20 22:45 71 18 116/74 05/29/20 22:32 98 F 05/29/20 22:30 65 20 118/73 05/29/20 22:15 65 18 117/73 05/29/20 22:02 97.8 F 05/29/20 22:00 97.8 F 72 20 119/77 05/29/20 21:47 97.8 F 69 22 131/75 05/29/20 21:45 68 21 131/75 05/29/20 21:30 62 20 125/71 05/29/20 21:15 66 22 128/78 05/29/20 21:00 73 12 118/67 05/29/20 20:45 67 20 128/74 05/29/20 20:36 76 76 76 19 05/29/20 20:31 78 15 115/55 05/29/20 20:30 69 69 05/29/20 20:15 78 74 74 15 121/73 05/29/20 20:05 98.9 F 05/29/20 20:00 60 69 69 23 127/72 05/29/20 19:48 22 05/29/20 19:45 68 72 72 20 134/75 05/29/20 19:30 65 68 68 20 128/80 05/29/20 19:15 68 20 128/76 05/29/20 19:04 05/29/20 17:00 98.1 F 79 16 05/29/20 16:55 79 130/78 05/29/20 16:54 78 05/29/20 16:50 76 134/83 05/29/20 16:49 77 05/29/20 16:45 88 134/85 05/29/20 16:44 78 05/29/20 16:40 98.1 F 95 H 16 116/71 05/29/20 16:39 80 05/29/20 16:35 97.9 F 82 16 123/73 05/29/20 16:34 81 BP Pulse Ox 05/30/20 16:00 95 05/30/20 15:45 96 05/30/20 15:30 96 05/30/20 15:15 97 05/30/20 15:00 96 05/30/20 14:45 97 05/30/20 14:42 05/30/20 14:30 98 05/30/20 14:15 96 05/30/20 14:00 98 05/30/20 13:45 99 05/30/20 13:30 98 05/30/20 13:23 05/30/20 13:15 97 05/30/20 13:00 97 05/30/20 12:45 97 05/30/20 12:30 97 05/30/20 12:15 97 05/30/20 12:00 100 05/30/20 11:45 98 05/30/20 11:30 97 05/30/20 11:15 98 05/30/20 11:00 98 05/30/20 10:45 98 05/30/20 10:30 98 05/30/20 10:15 98 05/30/20 10:00 98 05/30/20 09:45 98 05/30/20 09:30 98 05/30/20 09:15 97 05/30/20 09:00 97 05/30/20 08:45 99 05/30/20 08:42 05/30/20 08:30 99 05/30/20 08:15 99 05/30/20 08:00 100 05/30/20 07:45 99 05/30/20 07:30 99 05/30/20 07:20 05/30/20 07:15 99 05/30/20 07:00 100 05/30/20 06:45 100 05/30/20 06:30 100 05/30/20 06:15 100 05/30/20 06:00 100 05/30/20 05:45 100 05/30/20 05:30 100 05/30/20 05:15 100 05/30/20 05:00 99 05/30/20 04:46 100 05/30/20 04:30 100 05/30/20 04:15 100 05/30/20 04:00 100 05/30/20 03:45 100 05/30/20 03:30 100 05/30/20 03:15 100 05/30/20 03:00 100 05/30/20 02:45 100 05/30/20 02:30 100 05/30/20 02:15 100 05/30/20 02:00 100 05/30/20 01:45 100 05/30/20 01:30 100 05/30/20 01:15 100 05/30/20 01:00 100 05/30/20 00:45 100 05/30/20 00:30 100 05/30/20 00:15 100 05/30/20 00:02 100 05/30/20 00:00 100 05/29/20 23:56 100 05/29/20 23:45 100 05/29/20 23:30 100 05/29/20 23:15 100 05/29/20 23:00 100 05/29/20 22:45 100 05/29/20 22:32 05/29/20 22:30 100 05/29/20 22:15 100 05/29/20 22:02 05/29/20 22:00 100 05/29/20 21:47 100 05/29/20 21:45 100 05/29/20 21:30 100 05/29/20 21:15 100 05/29/20 21:00 100 05/29/20 20:45 100 05/29/20 20:36 100 05/29/20 20:31 100 05/29/20 20:30 05/29/20 20:15 100 05/29/20 20:05 05/29/20 20:00 100 05/29/20 19:48 05/29/20 19:45 05/29/20 19:30 05/29/20 19:15 05/29/20 19:04 100 05/29/20 17:00 130/78 100 05/29/20 16:55 05/29/20 16:54 100 05/29/20 16:50 05/29/20 16:49 05/29/20 16:45 05/29/20 16:44 99 05/29/20 16:40 116/71 100 05/29/20 16:39 100 05/29/20 16:35 123/73 05/29/20 16:34 100 Intake and Output 05/30/20 05/30/20 05/30/20 07:59 15:59 23:59 Intake Total 1584 Output Total 500 Balance -500 1584 Intake: IV 1000 PITOCin/NS 20 UNIT/1000ML 1000 DRIP 20 units In 1,000 ml @ 125 mls/hr IV DIRECT ISAIAS Rx#:[id number] Blood Product 584 Leukoreduced Red Blood 250 Cells Unit [id number] Platelet Pheresis 2 Unit 334 [id number] Output: Urine 500 Indwelling Catheter 500 Other: Total, Output Amount 500 Voiding Method Indwelling Catheter Indwelling Catheter Indwelling Catheter - Exam Abdomen: Present: normal appearance, soft (appropriately tender. FF @U-1 cm. Wound C/D/I.) Incision: Present: normal, dry, intact - Labs Labs: Abnormal lab results 05/28/20 05/29/20 05/29/20 Range/Units 19:45 16:29 16:29 WBC 29.1 H (4.5-11.0) K/mm3 RBC 3.33 L (3.65-5.03) M/mm3 Hgb 9.5 L (10.1-14.3) gm/dl Hct 28.4 L (30.3-42.9) % RDW 18.7 H (13.2-15.2) % Plt Count 67 L (140-440) K/mm3 Lymph % (Auto) (13.4-35.0) % [place] % (Auto) (0.0-7.3) % [place] # (0.0-0.8) K/mm3 Seg Neutrophils % (40.0-70.0) % Seg Neuts % (Manual) 89.0 H (40.0-70.0) % Lymphocytes % (Manual) 4.0 L (13.4-35.0) % Seg Neutrophils # (1.8-7.7) K/mm3 Seg Neutrophils # Man 25.9 H (1.8-7.7) K/mm3 Monocytes # (Manual) 1.7 H (0.0-0.8) K/mm3 INR 1.18 H (0.87-1.13) Fibrinogen 167 L (211-480) mg/dl Sodium (137-145) mmol/L Carbon Dioxide (22-30) mmol/L Creatinine (0.7-1.2) mg/dL Glucose (65-100) mg/dL Calcium (8.4-10.2) mg/dL ALT (7-56) units/L Total Protein (6.3-8.2) g/dL Albumin (3.9-5) g/dL Crossmatch See Detail 05/29/20 05/30/20 05/30/20 Range/Units 16:29 00:50 06:00 WBC 20.0 H (4.5-11.0) K/mm3 RBC 2.42 L (3.65-5.03) M/mm3 Hgb 7.2 L 6.8 L (10.1-14.3) gm/dl Hct 21.3 L D 20.6 L (30.3-42.9) % RDW 17.7 H (13.2-15.2) % Plt Count 59 L (140-440) K/mm3 Lymph % (Auto) 6.7 L (13.4-35.0) % [place] % (Auto) 9.1 H (0.0-7.3) % [place] # 1.8 H (0.0-0.8) K/mm3 Seg Neutrophils % 84.1 H (40.0-70.0) % Seg Neuts % (Manual) (40.0-70.0) % Lymphocytes % (Manual) (13.4-35.0) % Seg Neutrophils # 16.9 H (1.8-7.7) K/mm3 Seg Neutrophils # Man (1.8-7.7) K/mm3 Monocytes # (Manual) (0.0-0.8) K/mm3 INR (0.87-1.13) Fibrinogen (211-480) mg/dl Sodium 134 L (137-145) mmol/L Carbon Dioxide 19 L (22-30) mmol/L Creatinine (0.7-1.2) mg/dL Glucose (65-100) mg/dL Calcium 6.9 L D (8.4-10.2) mg/dL ALT (7-56) units/L Total Protein 4.1 L D (6.3-8.2) g/dL Albumin 2.6 L (3.9-5) g/dL Crossmatch 05/30/20 05/30/20 Range/Units 06:00 13:45 WBC 18.8 H (4.5-11.0) K/mm3 RBC 2.52 L (3.65-5.03) M/mm3 Hgb 7.3 L (10.1-14.3) gm/dl Hct 21.8 L (30.3-42.9) % RDW 18.0 H (13.2-15.2) % Plt Count 69 L (140-440) K/mm3 Lymph % (Auto) (13.4-35.0) % [place] % (Auto) (0.0-7.3) % [place] # (0.0-0.8) K/mm3 Seg Neutrophils % (40.0-70.0) % Seg Neuts % (Manual) (40.0-70.0) % Lymphocytes % (Manual) (13.4-35.0) % Seg Neutrophils # (1.8-7.7) K/mm3 Seg Neutrophils # Man (1.8-7.7) K/mm3 Monocytes # (Manual) (0.0-0.8) K/mm3 INR (0.87-1.13) Fibrinogen (211-480) mg/dl Sodium (137-145) mmol/L Carbon Dioxide 20 L (22-30) mmol/L Creatinine 0.6 L (0.7-1.2) mg/dL Glucose 111 H (65-100) mg/dL Calcium 6.7 L (8.4-10.2) mg/dL ALT 6 L (7-56) units/L Total Protein 4.1 L (6.3-8.2) g/dL Albumin 2.4 L (3.9-5) g/dL Crossmatch
[2020-05-30 21:11] LABS: Hematocrit 20.8 % (30.3-42.9); Hemoglobin 7.1 gm/dl (10.1-14.3); Mean Corpuscular HGB Conc 34 % (30-34); Mean Corpuscular Volume 86 fl (79-97); Red Blood Count 2.41 M/mm3 (3.65-5.03); Red Cell Distribution Width 17.9 % (13.2-15.2)
[2020-05-30 21:41] LABS: Platelet Count 85 K/mm3 (140-440)
[2020-05-30] MEDS: ACETAMINOPHEN 325 MG TAB PO PRN (23:14)
--- NOTE | 2020-05-30 23:53 | Consultation ---
PULMONARY CRITICAL CARE CONSULTATION NOTE CONSULTING PHYSICIANS: Dr. Quiles and Dr. Angel. REASON FOR CONSULTATION: 1. Acute blood loss anemia. 2. Symptomatic anemia. 3. Vaginal bleeding. CHIEF COMPLAINT AND HISTORY OF PRESENT ILLNESS: As follows: The patient is a 39-year-old female with past medical history significant in this context for a diagnosis of being 6, para 5 with 3 previous C-sections. She apparently was brought into the hospital for what looks like an elective section. Postop, she had uncontrolled vaginal bleeding/possible uterine bleeding. She became hypotensive. She had received about 5 units of packed red cells without adequate response. Her hemoglobin level was about 5.0. Post-resuscitation, Interventional Radiology was consulted for a possible uterine artery embolization. The patient was taken into the cath suite/IR suite and she had [place] embolization of the right and left uterine arteries with good control of bleeding. Postop, she was brought into the Intensive Care Unit where I stopped by to see her. When I stopped by to see her, she was resting in bed. Denied any abdominal pain. Denied any active vaginal bleeding as far as she could tell. She denied any chest pain. She denied any palpitations. Denied any nausea or vomiting. The patient denied a history of tobacco use or abuse. She denied any other bleeding diathesis. She denied any easy bruising or easy bleeding or failure for cuts to stop bleeding. This really is as much of the history of this presentation as I have. PAST MEDICAL HISTORY: Again, significant for diagnosis of the prior deliveries, no other medical history. PAST SURGICAL HISTORY: She has had 3 sections in the past. MEDICATIONS: Medications that she was on at the time I stopped by to see her were reviewed. Pertinent medications include the following: Tylenol 650 mg p.o. q. 4 hours p.r.n. fever greater than 100.5 or headaches. [place] 5/325 one tablet p.o. q. 6 hours p.r.n. moderate pain, Feosol 325 mg p.o. daily, daily multivitamins including thiamine 100 mg, ibuprofen 800 mg p.o. q. 6 hours p.r.n. mild pain, Levaquin 500 mg p.o. daily. Methergine 0.2 mg IM q. 4 hours p.r.n. uterine bleeding, morphine sulfate 4 mg IV q. 4 hours p.r.n. severe pain, Zofran 4 mg IV q. 8 hours p.r.n. nausea and vomiting. She had been on a Pitocin drip at 125 mL per hour, 20 units per liter drip and Tucks hemorrhoidal creams p.r.n. ALLERGIES: No known drug allergies. DIET: Well-built lady. She denies acute weight loss or gain except as related to her . FAMILY AND SOCIAL HISTORY: Lives in the community. She is . Denies alcohol, tobacco, or illicit drug use or abuse. FAMILY HISTORY: Otherwise, noncontributory. REVIEW OF SYSTEMS: Denies any loss of consciousness. No new onset seizures. No weakness. No dizziness. She denies gross hematochezia or melena. She had the vaginal bleeding. She denies hemoptysis. She denies hematemesis. She denies emesis. She denies heat or cold intolerance. Denied polydipsia, polyuria. Complete 13-system review of systems obtained. Pertinent positives and/or negatives as in body of history above, otherwise they are noncontributory. PHYSICAL EXAMINATION: VITAL SIGNS: On examination since admission, she has essentially been afebrile. Her most recent vital signs revealed a temperature of 98.9 degrees Fahrenheit orally, pulse of 97, respiratory rate of 20, blood pressure 120/68, O2 sats were 97% and that was on 2 liters nasal cannula. GENERAL: Young female, normocephalic, atraumatic, talking to me in full sentences without significantly increased respiratory effort at rest. HEAD, EYES, EARS, NOSE AND THROAT: She was anicteric, no conjunctival erythema. Oropharynx was moist. NECK: No gross jugular venous distention, no thyromegaly. Grossly, there were no palpable lymph nodes in the supraclavicular or submandibular lymph node chains. LUNGS: Auscultation of both lung sanon unremarkable. Lungs are clear bilaterally. Good bilateral air movement. HEART: Heart sounds 1 and 2 are heard. They were regular in rate and rhythm at time of my evaluation without overt rubs or murmurs. ABDOMEN: Full, protuberant. It is soft. Bowel sounds are positive, nontender, no palpable hepatosplenomegaly. EXTREMITIES: Without overt digital clubbing or cyanosis. Trace pedal edema. Pedal pulses are 2+ bilaterally. NEUROLOGIC: Pupils are equal, round, about 4 mm, reactive to light. Extraocular muscle movements are intact. She moves all 4 extremities spontaneously. SKIN: Normal turgor in the areas examined without overt cellulitis or rash. She has the post- section wound that is not actively bleeding. PSYCHIATRIC: Her mood and affect were on the depressed side. She had not seen her baby. LABORATORY DATA: From my review as follows: Admission white cell count 11,500, hemoglobin 8.0, hematocrit 24.5, platelet count was 220. No manual differential. INR was 1.18. Fibrinogen low at 167, this was yesterday. Serum sodium was 134, potassium 4.8, chloride 104, bicarbonate 19, BUN 11, creatinine 0.7, and glucose was 98. Liver function tests within normal limits. Albumin was low at 2.6. Most recent labs, serum bicarbonate is up to 20. Liver function tests still within normal limits. Her hemoglobin level was 9.5 yesterday. This morning, it was 7.2 and then the most recent one was to 6.8. She has since received 1 unit of transfusion post the 6.8 hemoglobin, her platelet count is 59. A platelet pack has been ordered. Her repeat fibrinogen is up to 288. No cultures. No radiographic studies. ASSESSMENT: 1. Acute blood loss anemia. 2. Hemorrhagic shock, resolved. 3. Status post uterine artery embolization. 4. Vaginal bleeding. 5. Anemia that is microcytic. 6. Status post massive blood transfusion. 7. Mild coagulopathy. 8. Mild metabolic acidosis. 9. Hypoalbuminemia. PLAN: She has just received 1 unit of blood for the hemoglobin of 6.8. We will see if there is an appropriate rise with her hemoglobin. Hemodynamically she has been stable. She has received FFPs and platelet transfusions as appropriate for a massive blood transfusion. She denies any chest pains or any suggestion of tissue hypoxia at this point in time or significant cardiac dysfunction. We will continue q. 6 hours H and H over the next 24 hours. She is about to receive another platelet transfusion and she has received FFPs earlier. Oxygen will be weaned to keep sats greater than or equal to over 90%. Aspiration precautions will be maintained. Iron supplementation will continue. I will defer to the CHEMISTRY ACCOUNT MANAGER team for management of her uterine postop issues. I note the leukocytosis. I suspect it is a stress leukocytosis, but she is appropriately on antibiotic therapy. I will put her on GI prophylaxis, especially with a mild coagulopathy that she has. DVT prophylaxis is going to be with SCDs. Flu and pneumonia vaccination will be per protocol. Hopefully, she stays stable, the repeat H and H are stable and the plan will be to transfer her out of the intensive care unit to a monitored bed later this evening. Thank you very much for the consult Dr. Angel and Dr. Quiles. We will follow along. We will make further recommendations as picture progresses/becomes clearer. JOB# [id number] CLOVER/TARIQ
[2020-05-31] MEDS: 1: FOLIC ACID 1 MG, MULTIPLE VITAMIN INJ, ADULT 10 ML, THIAMINE 100 MG in SODIUM CHLORID IV SCH ×3 (00:56→13:05)
[2020-05-31] MEDS: MORPHINE 4 MG/1 ML INJ IV PRN ×2 (01:45→09:58)
[2020-05-31 03:08] LABS: Hematocrit 20.7 % (30.3-42.9); Hemoglobin 6.7 gm/dl (10.1-14.3); Mean Corpuscular HGB Conc 33 % (30-34); Mean Corpuscular Volume 86 fl (79-97); Red Blood Count 2.39 M/mm3 (3.65-5.03); Red Cell Distribution Width 18.2 % (13.2-15.2)
[2020-05-31 03:14] LABS: Platelet Count 80 K/mm3 (140-440)
[2020-05-31] MEDS ORDERED: SODIUM CHLORIDE 0.9% 500 ML 500 ML IV ONE ×2 (03:39→10:41)
[2020-05-31] MEDS: HYDROcodone/ACETAMINOPHEN 5-325 MG TAB PO PRN (05:52)
[2020-05-31] MEDS: fentaNYL 100 MCG/2 ML INJ IV PRN (07:01)
[2020-05-31] MEDS: FERROUS SULFATE 325 MG TAB PO SCH (09:57)
[2020-05-31] MEDS: levoFLOXacin 500 MG TAB PO SCH (09:58)
[2020-05-31] MEDS: PRENATAL VIT27-FE FUMARATE-FOLIC ACID VIT TAB PO SCH (10:06)
[2020-05-31] MEDS ORDERED: NALOXONE 0.4 MG/1 ML INJ IV PRN (10:38)
--- NOTE | 2020-05-31 10:42 | Progress Note ---
Subjective - Subjective Date of service: 05/31/20 Principal diagnosis: PP hemorrhage, Early DIC Interval history: 39yo sp c/section (POD#3 from c/section)with PP hemorrhage and early DIC S/P [place] POD#2 I was called to the bedside for a large clot expressed from the uterus. At bedside ~200ml blood clot noted on peripad. NO active hemorrhage. 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 Leonila Ordoñez MD Patient reports: pain poorly controlled Objective - Vital Signs Latest vital signs: Vital Signs Temp Pulse Pulse Pulse Resp BP Pulse Ox 05/31/20 07:00 73 15 131/76 96 05/31/20 06:48 98.4 F 75 24 131/76 96 05/31/20 06:18 98.6 F 61 24 128/68 96 05/31/20 06:00 62 22 123/75 97 05/31/20 05:48 98.5 F 69 23 123/75 96 05/31/20 05:33 98.5 F 71 24 112/76 96 05/31/20 05:00 65 25 H 121/73 97 05/31/20 04:00 67 67 19 119/70 98 05/31/20 03:55 99.3 F 05/31/20 03:00 63 21 120/75 97 05/31/20 02:00 69 22 120/70 96 05/31/20 01:00 75 24 115/73 89 05/31/20 00:00 69 69 25 H 120/76 92 05/30/20 23:55 100.3 F H 05/30/20 23:00 77 16 127/76 94 05/30/20 22:00 64 22 123/73 95 05/30/20 21:00 82 20 120/70 94 05/30/20 20:00 99.1 F 80 80 20 113/65 96 07/08/20 19:01 70 21 114/72 94 05/30/20 19:00 71 21 114/72 95 05/30/20 18:46 86 13 126/63 96 05/30/20 18:45 88 19 126/63 96 05/30/20 18:30 74 23 113/64 95 08 18:15 83 16 140/77 96 05/30/20 18:00 93 H 22 130/83 95 08 17:45 85 20 125/74 95 05/30/20 17:30 85 16 131/73 96 05/30/20 17:15 90 18 127/75 94 05/30/20 17:00 82 20 119/77 94 05/30/20 16:45 83 22 129/77 95 05/30/20 16:30 80 24 127/72 95 08 16:15 76 22 123/72 94 05/30/20 16:00 73 88 84 21 117/70 95 05/30/20 15:45 71 24 119/70 96 08 15:30 82 22 122/74 96 05/30/20 15:15 78 22 118/71 97 05/30/20 15:00 79 22 112/71 96 05/30/20 14:45 87 24 118/73 97 05/30/20 14:43 98.5 F 71 24 112/76 96 08 14:42 98.7 F 05/30/20 14:30 81 19 114/74 98 08 14:15 98.9 F 82 19 120/72 96 08 14:00 87 20 120/74 98 08 13:45 94 H 20 132/73 99 08 13:30 87 24 122/78 98 08 13:23 98.9 F 05/30/20 13:15 70 20 120/68 97 08 13:00 74 14 117/68 97 08 12:45 77 19 109/72 97 08 12:30 77 23 117/70 97 08 12:15 76 13 116/64 97 08 12:00 93 H 84 84 22 109/67 100 05/30/20 11:45 70 20 112/70 98 05/30/20 11:30 77 24 114/69 97 05/30/20 11:15 68 20 107/72 98 05/30/20 11:00 73 22 114/71 98 05/30/20 10:45 66 21 110/72 98 Intake and Output 05/30/20 05/31/20 05/31/20 23:59 07:59 15:59 Intake Total 1616.667 Output Total 400 Balance 1216.667 Intake: IV 866.667 Oral 500 Blood Product 250 Leukoreduced Red Blood 250 Cells Unit [id number] Output: Urine 400 Indwelling Catheter 400 Other: Total, Intake Amount 500 Total, Output Amount 400 Voiding Method Indwelling Catheter Indwelling Catheter - Labs Labs: Abnormal lab results 05/28/20 05/30/20 05/30/20 Range/Units 19:45 13:45 20:50 WBC 18.8 H (4.5-11.0) K/mm3 RBC 2.52 L (3.65-5.03) M/mm3 Hgb 7.3 L (10.1-14.3) gm/dl Hct 21.8 L (30.3-42.9) % RDW 18.0 H (13.2-15.2) % Plt Count 69 L (140-440) K/mm3 Creatinine 0.6 L (0.7-1.2) mg/dL Crossmatch See Detail 05/30/20 05/31/20 Range/Units 20:50 02:45 WBC 17.8 H 15.1 H (4.5-11.0) K/mm3 RBC 2.41 L 2.39 L (3.65-5.03) M/mm3 Hgb 7.1 L 6.7 L (10.1-14.3) gm/dl Hct 20.8 L 20.7 L (30.3-42.9) % RDW 17.9 H 18.2 H (13.2-15.2) % Plt Count 85 L 80 L (140-440) K/mm3 Creatinine (0.7-1.2) mg/dL Crossmatch
[2020-05-31 11:55] LABS: Hematocrit 25.4 % (30.3-42.9); Hemoglobin 8.4 gm/dl (10.1-14.3); Mean Corpuscular HGB Conc 33 % (30-34); Mean Corpuscular Volume 86 fl (79-97); Red Blood Count 2.94 M/mm3 (3.65-5.03); Red Cell Distribution Width 17.6 % (13.2-15.2)
[2020-05-31 12:01] LABS: Platelet Count 94 K/mm3 (140-440)
[2020-05-31] MEDS: HYDROmorphone/NS 6 MG/30 ML PCA INJ IV SCH (12:29)
[2020-05-31] MEDS ORDERED: SODIUM CHLORIDE 0.9% 500 ML 500 ML IV NR (13:00)
--- NOTE | 2020-05-31 13:05 | Progress Note ---
Assessment and Plan -Acute blood loss anemia, post hemorrhage -Massive blood transfusion -s/p Uterine artery embolization -Dilution coagulopathy -Leukocytosis -Pain management/control -Transfuse 1 unit of cryoprecipitate -Continue to monitor hemoglobin and hemodynamics -Stat CBC -Trend temperature curve and WCC. This appears to be stress induced leukocytosis. If she develops any fevers, or hemodynamic instability, will plan to get cultures and initiate empiric antibiotics. -Keep NPO until seen by OB -VTE prophylaxis- SCDs in view of active bleeding -Will discontinue femoral CVC and use peripheral IVs. Discussed with the patient updated her re care plan Discussed with RN Continue to monitor in ICU for now, I am not sure if the vaginal clots seen this morning is residual bleeding. Subjective Date of service: 05/31/20 Principal diagnosis: PP hemorrhage, Early DIC Interval history: Follow up fro : Severe blood loss anemia/hemorrhage; s/p with uterine artery embolization Seen and examined. Nursing and respiratory staff consulted. Blood clots per vagina this morning. Last hemoglobin was <7 g/dL. Has had a total of 8 units of PRBC, 1 unit of platelet. No fevers, no diarrhea or vomiting. Complains of a lot of abdominal pain with cramping. Vitals, labs, medications, chart reviewed Objective Vital Signs - 12hr 05/31/20 05/31/20 05/31/20 02:00 03:00 03:55 Temperature 99.3 F Pulse Rate 69 63 Pulse Rate [ From Monitor] Respiratory 22 21 Rate Blood Pressure 120/70 120/75 O2 Sat by Pulse 96 97 Oximetry 05/31/20 05/31/20 05/31/20 04:00 05:00 05:33 Temperature 98.5 F Pulse Rate 67 65 71 Pulse Rate [ 67 From Monitor] Respiratory 19 25 H 24 Rate Blood Pressure 119/70 121/73 112/76 O2 Sat by Pulse 98 97 96 Oximetry 05/31/20 05/31/20 05/31/20 05:48 06:00 06:18 Temperature 98.5 F 98.6 F Pulse Rate 69 62 61 Pulse Rate [ From Monitor] Respiratory 23 22 24 Rate Blood Pressure 123/75 123/75 128/68 O2 Sat by Pulse 96 97 96 Oximetry 05/31/20 05/31/20 05/31/20 06:48 07:00 08:00 Temperature 98.4 F Pulse Rate 75 73 69 Pulse Rate [ From Monitor] Respiratory 24 15 16 Rate Blood Pressure 131/76 131/76 127/78 O2 Sat by Pulse 96 96 97 Oximetry 05/31/20 05/31/20 05/31/20 09:00 10:00 11:00 Temperature Pulse Rate 56 L 62 62 Pulse Rate [ From Monitor] Respiratory 21 22 22 Rate Blood Pressure 137/74 144/75 132/79 O2 Sat by Pulse 96 98 96 Oximetry Constitutional: alert, appears uncomfortable Eyes: non-icteric ENT: oropharynx moist Neck: supple, no lymphadenopathy Effort: normal Ascultation: Bilateral: clear, diminished breath sounds Cardiovascular: regular rate and rhythm, other (S1, S2) Gastrointestinal: normoactive bowel sounds, soft, tender (suprapubic wiht firm uterus) Integumentary: normal, other (Left femoral CVC) Extremities: no cyanosis, no edema, pink and warm, pulses normal Neurologic: normal mental status, non-focal exam Psychiatric: mood appropriate, anxious CBC and BMP: 05/31/20 11:30 05/30/20 20:50 ABG, PT/INR, D-dimer: PT/INR, D-dimer PT 14.8 Sec. (12.2-14.9) 05/29/20 16:29 INR 1.18 (0.87-1.13) H 05/29/20 16:29 Abnormal lab findings: Abnormal Labs 05/28/20 05/28/20 05/29/20 19:45 19:45 05:20 WBC 11.5 H RBC 3.47 L Hgb 8.0 L 5.0 L* D Hct 24.5 L 15.5 L* D MCV 71 L MCH 23 L RDW 15.8 H Plt Count Lymph % (Auto) [place] % (Auto) 10.9 H [place] # 1.3 H Seg Neutrophils % Seg Neuts % (Manual) Lymphocytes % (Manual) Seg Neutrophils # Seg Neutrophils # Man Monocytes # (Manual) INR Fibrinogen Sodium Carbon Dioxide Creatinine Glucose Calcium ALT Total Protein Albumin Crossmatch See Detail 05/29/20 05/29/20 05/29/20 06:45 16:29 16:29 WBC 29.1 H RBC 3.33 L Hgb 7.9 L 9.5 L Hct 23.8 L D 28.4 L MCV MCH RDW 18.7 H Plt Count 67 L Lymph % (Auto) [place] % (Auto) [place] # Seg Neutrophils % Seg Neuts % (Manual) 89.0 H Lymphocytes % (Manual) 4.0 L Seg Neutrophils # Seg Neutrophils # Man 25.9 H Monocytes # (Manual) 1.7 H INR 1.18 H Fibrinogen 167 L Sodium Carbon Dioxide Creatinine Glucose Calcium ALT Total Protein Albumin Crossmatch 05/29/20 05/30/20 05/30/20 16:29 00:50 06:00 WBC 20.0 H RBC 2.42 L Hgb 7.2 L 6.8 L Hct 21.3 L D 20.6 L MCV MCH RDW 17.7 H Plt Count 59 L Lymph % (Auto) 6.7 L [place] % (Auto) 9.1 H [place] # 1.8 H Seg Neutrophils % 84.1 H Seg Neuts % (Manual) Lymphocytes % (Manual) Seg Neutrophils # 16.9 H Seg Neutrophils # Man Monocytes # (Manual) INR Fibrinogen Sodium 134 L Carbon Dioxide 19 L Creatinine Glucose Calcium 6.9 L D ALT Total Protein 4.1 L D Albumin 2.6 L Crossmatch 05/30/20 05/30/20 05/30/20 06:00 13:45 20:50 WBC 18.8 H RBC 2.52 L Hgb 7.3 L Hct 21.8 L MCV MCH RDW 18.0 H Plt Count 69 L Lymph % (Auto) [place] % (Auto) [place] # Seg Neutrophils % Seg Neuts % (Manual) Lymphocytes % (Manual) Seg Neutrophils # Seg Neutrophils # Man Monocytes # (Manual) INR Fibrinogen Sodium Carbon Dioxide 20 L Creatinine 0.6 L 0.6 L Glucose 111 H Calcium 6.7 L ALT 6 L Total Protein 4.1 L Albumin 2.4 L Crossmatch 05/30/20 05/31/20 05/31/20 20:50 02:45 11:30 WBC 17.8 H 15.1 H 17.7 H RBC 2.41 L 2.39 L 2.94 L Hgb 7.1 L 6.7 L 8.4 L Hct 20.8 L 20.7 L 25.4 L MCV MCH RDW 17.9 H 18.2 H 17.6 H Plt Count 85 L 80 L 94 L Lymph % (Auto) [place] % (Auto) [place] # Seg Neutrophils % Seg Neuts % (Manual) Lymphocytes % (Manual) Seg Neutrophils # Seg Neutrophils # Man Monocytes # (Manual) INR Fibrinogen Sodium Carbon Dioxide Creatinine Glucose Calcium ALT Total Protein Albumin Crossmatch
[2020-05-31] MEDS ORDERED: FUROSEMIDE 40 MG/4 ML INJ IV ONE (18:03)
[2020-05-31] MEDS ORDERED: SODIUM CHLORIDE 0.9% 1000 ML 1,000 ML IV SCH (18:15)
--- NOTE | 2020-05-31 18:45 | Progress Note ---
Subjective - Subjective Date of service: 05/31/20 Principal diagnosis: PP hemorrhage, Early DIC Interval history: pt seen and examined on PM rounds AAOx3 MATTRESS STUFFER adequate for pain control +ve fluid balance RR26: LCTAB: plan for 10mg lasx iv. Decrease NS at 75ml/hr. DC banana bag. MATTRESS STUFFER fluids at 5ml/hr Rand 500ml clear urine Vitals stable and reviewed(documented in chart) Fundus firm Peripad dry Plan for MATTRESS STUFFER overnight and up to chair in AM Regular diet plan for labs in AM transfer to Mother/Baby if stable Leonila Ordoñez MD Objective - Vital Signs Latest vital signs: Vital Signs Temp Pulse Pulse Resp BP Pulse Ox 05/31/20 16:00 98.6 F 73 23 140/75 95 05/31/20 15:45 98.1 F 74 22 147/71 97 05/31/20 15:00 63 24 129/78 97 05/31/20 14:25 99.4 F 05/31/20 14:20 99 F 05/31/20 14:15 68 21 145/73 96 05/31/20 14:00 69 21 152/78 96 05/31/20 13:45 63 22 148/74 96 05/31/20 13:30 67 21 138/80 96 05/31/20 13:15 66 21 132/77 96 05/31/20 13:00 67 21 131/78 95 05/31/20 12:45 71 20 147/81 96 05/31/20 12:30 68 18 143/81 95 05/31/20 12:16 70 22 128/67 93 05/31/20 12:00 75 19 139/63 96 05/31/20 11:00 62 22 132/79 96 05/31/20 10:25 96 05/31/20 10:00 62 22 144/75 98 05/31/20 09:00 56 L 21 137/74 96 05/31/20 08:00 69 16 127/78 97 05/31/20 07:00 73 15 131/76 96 05/31/20 06:48 98.4 F 75 24 131/76 96 05/31/20 06:18 98.6 F 61 24 128/68 96 05/31/20 06:00 62 22 123/75 97 05/31/20 05:48 98.5 F 69 23 123/75 96 05/31/20 05:33 98.5 F 71 24 112/76 96 05/31/20 05:00 65 25 H 121/73 97 05/31/20 04:00 67 67 19 119/70 98 05/31/20 03:55 99.3 F 05/31/20 03:00 63 21 120/75 97 05/31/20 02:00 69 22 120/70 96 05/31/20 01:00 75 24 115/73 89 05/31/20 00:00 69 69 25 H 120/76 92 05/30/20 23:55 100.3 F H 05/30/20 23:00 77 16 127/76 94 05/30/20 22:00 64 22 123/73 95 05/30/20 21:00 82 20 120/70 94 05/30/20 20:00 99.1 F 80 80 20 113/65 96 05/30/20 19:01 70 21 114/72 94 05/30/20 19:00 71 21 114/72 95 05/30/20 18:46 86 13 126/63 96 05/30/20 18:45 88 19 126/63 96 Intake and Output 05/31/20 05/31/20 05/31/20 07:59 15:59 23:59 Intake Total 1616.667 0 10 Output Total 400 Balance 1216.667 0 10 Intake: IV 866.667 Oral 500 Blood Product 250 0 10 Cryoprecipitate Thawed 0 10 Unit [id number] Leukoreduced Red Blood 250 Cells Unit [id number] Output: Urine 400 Indwelling Catheter 400 Other: Total, Intake Amount 500 Total, Output Amount 400 Voiding Method Indwelling Catheter Indwelling Catheter Indwelling Catheter - Labs Labs: Abnormal lab results 05/28/20 05/30/20 05/30/20 Range/Units 19:45 20:50 20:50 WBC 17.8 H (4.5-11.0) K/mm3 RBC 2.41 L (3.65-5.03) M/mm3 Hgb 7.1 L (10.1-14.3) gm/dl Hct 20.8 L (30.3-42.9) % RDW 17.9 H (13.2-15.2) % Plt Count 85 L (140-440) K/mm3 Creatinine 0.6 L (0.7-1.2) mg/dL Crossmatch See Detail 05/31/20 05/31/20 Range/Units 02:45 11:30 WBC 15.1 H 17.7 H (4.5-11.0) K/mm3 RBC 2.39 L 2.94 L (3.65-5.03) M/mm3 Hgb 6.7 L 8.4 L (10.1-14.3) gm/dl Hct 20.7 L 25.4 L (30.3-42.9) % RDW 18.2 H 17.6 H (13.2-15.2) % Plt Count 80 L 94 L (140-440) K/mm3 Creatinine (0.7-1.2) mg/dL Crossmatch
[2020-05-31] MEDS ORDERED: FUROSEMIDE 20 MG/2 ML INJ IV ONE (19:00)
[2020-06-01] MEDS: ACETAMINOPHEN 325 MG TAB PO PRN (02:26)
[2020-06-01] MEDS: 1: FOLIC ACID 1 MG, MULTIPLE VITAMIN INJ, ADULT 10 ML, THIAMINE 100 MG in SODIUM CHLORID IV SCH ×2 (05:27→08:46)
[2020-06-01 07:14] LABS: Basophils % (Auto) 0.2 % (0.0-1.8); Eosinophils # (Auto) 0.1 K/mm3 (0.0-0.4); Eosinophils % (Auto) 0.7 % (0.0-4.3); Hematocrit 25.1 % (30.3-42.9); Hemoglobin 8.2 gm/dl (10.1-14.3); Lymphocytes # (Auto) 1.6 K/mm3 (1.2-5.4); Lymphocytes % (Auto) 8.7 % (13.4-35.0); Mean Corpuscular HGB Conc 33 % (30-34); Mean Corpuscular Volume 87 fl (79-97); Monocytes # (Auto) 1.8 K/mm3 (0.0-0.8); Monocytes % (Auto) 10.2 % (0.0-7.3); Platelet Count 113 K/mm3 (140-440); Red Blood Count 2.89 M/mm3 (3.65-5.03); Red Cell Distribution Width 17.9 % (13.2-15.2)
--- NOTE | 2020-06-01 07:34 | Progress Note ---
Subjective - Subjective Date of service: 06/01/20 Principal diagnosis: PP hemorrhage, Early DIC Interval history: pt seen and examined on AM rounds AAOx3 [employer] adequate for pain control pt had a much better night overall and her SOB has resolved with Lasix She reports +ve flatus Vitals stable and reviewed(documented in chart) -ve fluid balance RR 18: LCTAB RRR ABS: soft, NT, no rebound or guarding, no bleeding(peripad dry) Uterus 2FB below umbilicus Plan for regular diet, up to chair and transfer to mother baby after lunch Regular diet plan for labs Q am: coagulopathy resolving. NO active hemorrhage>24 hours. Leonila Ordoñez MD Objective - Vital Signs Latest vital signs: Vital Signs Temp Pulse Pulse Resp BP Pulse Ox 06/01/20 07:00 20 06/01/20 06:17 18 06/01/20 06:00 67 23 134/77 97 06/01/20 05:00 64 18 132/73 98 06/01/20 04:53 67 17 97 06/01/20 04:35 20 06/01/20 04:00 67 20 125/71 97 06/01/20 03:26 98.6 F 06/01/20 03:00 69 22 137/71 96 06/01/20 02:00 74 22 127/70 97 06/01/20 01:00 71 23 132/75 96 06/01/20 00:40 75 20 96 06/01/20 00:00 74 24 144/78 96 05/31/20 23:35 100.4 F H 05/31/20 23:00 74 24 139/76 97 05/31/20 22:35 75 22 139/74 97 05/31/20 22:34 18 05/31/20 22:00 72 24 133/79 97 05/31/20 21:00 76 25 H 141/72 95 05/31/20 20:49 74 18 96 05/31/20 20:30 16 05/31/20 20:00 79 33 H 130/80 95 05/31/20 19:50 98.8 F 05/31/20 19:00 74 25 H 153/85 96 05/31/20 18:00 78 24 132/78 96 05/31/20 17:00 73 28 H 141/78 95 05/31/20 16:00 98.6 F 73 23 140/75 95 05/31/20 15:45 98.1 F 74 22 147/71 97 05/31/20 15:00 63 24 129/78 97 05/31/20 14:30 18 05/31/20 14:25 99.4 F 05/31/20 14:20 99 F 05/31/20 14:15 68 21 145/73 96 05/31/20 14:00 69 21 152/78 96 05/31/20 13:45 63 22 148/74 96 05/31/20 13:30 67 21 138/80 96 05/31/20 13:15 66 21 132/77 96 05/31/20 13:00 67 21 131/78 95 05/31/20 12:45 71 20 147/81 96 05/31/20 12:30 68 18 143/81 95 05/31/20 12:16 70 22 128/67 93 05/31/20 12:00 75 19 139/63 96 05/31/20 11:00 62 22 132/79 96 05/31/20 10:25 96 05/31/20 10:00 62 22 144/75 98 05/31/20 09:00 56 L 21 137/74 96 05/31/20 08:00 69 16 127/78 97 Intake and Output 05/31/20 05/31/20 06/01/20 15:59 23:59 07:59 Intake Total 0 10 Output Total 1250 Balance 0 10 -1250 Intake: Blood Product 0 10 Cryoprecipitate Thawed 0 10 Unit [id number] Output: Urine 1250 Indwelling Catheter 1250 Other: Total, Output Amount 1250 Voiding Method Indwelling Catheter Indwelling Catheter Indwelling Catheter - Labs Labs: Abnormal lab results 05/28/20 05/31/20 06/01/20 Range/Units 19:45 11:30 06:00 WBC 17.7 H 18.0 H (4.5-11.0) K/mm3 RBC 2.94 L 2.89 L (3.65-5.03) M/mm3 Hgb 8.4 L 8.2 L (10.1-14.3) gm/dl Hct 25.4 L 25.1 L (30.3-42.9) % RDW 17.6 H 17.9 H (13.2-15.2) % Plt Count 94 L 113 L (140-440) K/mm3 Lymph % (Auto) 8.7 L (13.4-35.0) % [place] % (Auto) 10.2 H (0.0-7.3) % [place] # 1.8 H (0.0-0.8) K/mm3 Seg Neutrophils % 80.2 H (40.0-70.0) % Seg Neutrophils # 14.4 H (1.8-7.7) K/mm3 Crossmatch See Detail
[2020-06-01 07:42] LABS: Alanine Aminotransferase 8 units/L (7-56); Albumin 2.1 g/dL (3.9-5); BUN/Creatinine Ratio 11; Blood Urea Nitrogen 8 mg/dL (7-17); Calcium 7.1 mg/dL (8.4-10.2); Hemolysis Index 2
[2020-06-01] MEDS: FERROUS SULFATE 325 MG TAB PO SCH (10:58)
[2020-06-01] MEDS: levoFLOXacin 500 MG TAB PO SCH (10:58)
[2020-06-01] MEDS: PRENATAL VIT27-FE FUMARATE-FOLIC ACID VIT TAB PO SCH (10:58)
[2020-06-01] MEDS: POTASSIUM CHLORIDE 20 MEQ PACKET FEEDTUBE SCH ×2 (12:49→19:23)
--- NOTE | 2020-06-01 13:00 | Progress Note ---
Assessment and Plan -Acute blood loss anemia, post hemorrhage -Massive blood transfusion -s/p Uterine artery embolization -Dilution coagulopathy -Leukocytosis -Pain management/control, well controlled -Continue to monitor hemoglobin and hemodynamics -Trend temperature curve and WCC. This appears to be stress induced leukocytosis. If she develops any fevers, or hemodynamic instability, will plan to get cultures and initiate empiric antibiotics. -VTE prophylaxis- SCDs in view of active bleeding -Will discontinue femoral CVC and use peripheral IVs. -Incentive spirometry, increase activity -All other care per OB, stable to transfer out of the ICU Discussed with the patient updated her re care plan Discussed with RN Subjective Date of service: 06/01/20 Principal diagnosis: PP hemorrhage, Early DIC Interval history: Follow up fro : Severe blood loss anemia/hemorrhage; s/p with uterine artery embolization Seen and examined. Nursing and respiratory staff consulted. Blood clots per vagina this morning. s/p PRBC, platelets and cryo. No fevers. Had a good night Sitting up in chair, more comfortable, denies any abdominal pain, no nausea or vomiting. Minimal vaginal bleeding Vitals, labs, medications, chart reviewed Objective Vital Signs - 12hr 06/01/20 06/01/20 06/01/20 02:00 03:00 03:26 Temperature 98.6 F Pulse Rate 74 69 Pulse Rate [ From Monitor] Respiratory 22 22 Rate Blood Pressure 127/70 137/71 O2 Sat by Pulse 97 96 Oximetry 06/01/20 06/01/20 06/01/20 04:00 04:35 04:53 Temperature Pulse Rate 67 Pulse Rate [ 67 From Monitor] Respiratory 20 20 17 Rate Blood Pressure 125/71 O2 Sat by Pulse 97 97 Oximetry 06/01/20 06/01/20 06/01/20 05:00 06:00 06:17 Temperature Pulse Rate 64 67 Pulse Rate [ From Monitor] Respiratory 18 23 18 Rate Blood Pressure 132/73 134/77 O2 Sat by Pulse 98 97 Oximetry 06/01/20 06/01/20 06/01/20 07:00 08:00 09:01 Temperature Pulse Rate 65 67 71 Pulse Rate [ 85 From Monitor] Respiratory 19 20 21 Rate Blood Pressure 137/81 146/111 138/72 O2 Sat by Pulse 98 98 97 Oximetry 07/10/20 07/10/20 07/10/20 10:00 11:01 12:00 Temperature Pulse Rate 68 94 H 72 Pulse Rate [ 65 From Monitor] Respiratory 20 10 L 21 Rate Blood Pressure 139/76 144/80 139/84 O2 Sat by Pulse 99 99 96 Oximetry 06/01/20 12:23 Temperature Pulse Rate Pulse Rate [ From Monitor] Respiratory Rate Blood Pressure O2 Sat by Pulse 97 Oximetry Constitutional: no acute distress, alert, other (sitting up in chair) Eyes: non-icteric ENT: oropharynx moist Neck: supple, no lymphadenopathy Effort: normal Ascultation: Bilateral: clear, diminished breath sounds Cardiovascular: regular rate and rhythm, other (S1, S2) Gastrointestinal: normoactive bowel sounds, soft, tender (suprapubic wiht firm uterus) Integumentary: normal, other (Left femoral CVC) Extremities: no cyanosis, no edema, pink and warm, pulses normal Neurologic: normal mental status, non-focal exam, pupils equal and round, CN II- XII normal, motor strength normal and Psychiatric: mood appropriate, affect normal CBC and BMP: 06/02/20 05:41 06/02/20 05:41 ABG, PT/INR, D-dimer: PT/INR, D-dimer PT 14.8 Sec. (12.2-14.9) 05/29/20 16:29 INR 1.18 (0.87-1.13) H 05/29/20 16:29 Abnormal lab findings: Abnormal Labs 05/28/20 05/28/20 05/29/20 19:45 19:45 05:20 WBC 11.5 H RBC 3.47 L Hgb 8.0 L 5.0 L* D Hct 24.5 L 15.5 L* D MCV 71 L MCH 23 L RDW 15.8 H Plt Count Lymph % (Auto) [place] % (Auto) 10.9 H [place] # 1.3 H Seg Neutrophils % Seg Neuts % (Manual) Lymphocytes % (Manual) Seg Neutrophils # Seg Neutrophils # Man Monocytes # (Manual) INR Fibrinogen Sodium Potassium Chloride Carbon Dioxide Creatinine Glucose Calcium ALT Total Protein Albumin Crossmatch See Detail 05/29/20 05/29/20 05/29/20 06:45 16:29 16:29 WBC 29.1 H RBC 3.33 L Hgb 7.9 L 9.5 L Hct 23.8 L D 28.4 L MCV MCH RDW 18.7 H Plt Count 67 L Lymph % (Auto) [place] % (Auto) [place] # Seg Neutrophils % Seg Neuts % (Manual) 89.0 H Lymphocytes % (Manual) 4.0 L Seg Neutrophils # Seg Neutrophils # Man 25.9 H Monocytes # (Manual) 1.7 H INR 1.18 H Fibrinogen 167 L Sodium Potassium Chloride Carbon Dioxide Creatinine Glucose Calcium ALT Total Protein Albumin Crossmatch 05/29/20 05/30/20 05/30/20 16:29 00:50 06:00 WBC 20.0 H RBC 2.42 L Hgb 7.2 L 6.8 L Hct 21.3 L D 20.6 L MCV MCH RDW 17.7 H Plt Count 59 L Lymph % (Auto) 6.7 L [place] % (Auto) 9.1 H [place] # 1.8 H Seg Neutrophils % 84.1 H Seg Neuts % (Manual) Lymphocytes % (Manual) Seg Neutrophils # 16.9 H Seg Neutrophils # Man Monocytes # (Manual) INR Fibrinogen Sodium 134 L Potassium Chloride Carbon Dioxide 19 L Creatinine Glucose Calcium 6.9 L D ALT Total Protein 4.1 L D Albumin 2.6 L Crossmatch 05/30/20 05/30/20 05/30/20 06:00 13:45 20:50 WBC 18.8 H RBC 2.52 L Hgb 7.3 L Hct 21.8 L MCV MCH RDW 18.0 H Plt Count 69 L Lymph % (Auto) [place] % (Auto) [place] # Seg Neutrophils % Seg Neuts % (Manual) Lymphocytes % (Manual) Seg Neutrophils # Seg Neutrophils # Man Monocytes # (Manual) INR Fibrinogen Sodium Potassium Chloride Carbon Dioxide 20 L Creatinine 0.6 L 0.6 L Glucose 111 H Calcium 6.7 L ALT 6 L Total Protein 4.1 L Albumin 2.4 L Crossmatch 05/30/20 05/31/20 05/31/20 20:50 02:45 11:30 WBC 17.8 H 15.1 H 17.7 H RBC 2.41 L 2.39 L 2.94 L Hgb 7.1 L 6.7 L 8.4 L Hct 20.8 L 20.7 L 25.4 L MCV MCH RDW 17.9 H 18.2 H 17.6 H Plt Count 85 L 80 L 94 L Lymph % (Auto) [place] % (Auto) [place] # Seg Neutrophils % Seg Neuts % (Manual) Lymphocytes % (Manual) Seg Neutrophils # Seg Neutrophils # Man Monocytes # (Manual) INR Fibrinogen Sodium Potassium Chloride Carbon Dioxide Creatinine Glucose Calcium ALT Total Protein Albumin Crossmatch 06/01/20 06/01/20 06:00 06:00 WBC 18.0 H RBC 2.89 L Hgb 8.2 L Hct 25.1 L MCV MCH RDW 17.9 H Plt Count 113 L Lymph % (Auto) 8.7 L [place] % (Auto) 10.2 H [place] # 1.8 H Seg Neutrophils % 80.2 H Seg Neuts % (Manual) Lymphocytes % (Manual) Seg Neutrophils # 14.4 H Seg Neutrophils # Man Monocytes # (Manual) INR Fibrinogen Sodium Potassium 3.1 L Chloride 108.3 H Carbon Dioxide 20 L Creatinine Glucose Calcium 7.1 L ALT Total Protein 4.3 L Albumin 2.1 L Crossmatch Allied health notes reviewed: nursing
[2020-06-01] MEDS: HYDROmorphone/NS 6 MG/30 ML PCA INJ IV SCH (13:43)
[2020-06-01] MEDS: MORPHINE 4 MG/1 ML INJ IV PRN (17:30)
[2020-06-02 06:50] LABS: Hematocrit 30.6 % (30.3-42.9); Hemoglobin 9.6 gm/dl (10.1-14.3); Mean Corpuscular HGB Conc 31 % (30-34); Mean Corpuscular Volume 90 fl (79-97); Platelet Count 181 K/mm3 (140-440); Red Blood Count 3.41 M/mm3 (3.65-5.03); Red Cell Distribution Width 18.5 % (13.2-15.2)
[2020-06-02 06:57] LABS: Alanine Aminotransferase 10 units/L (7-56); Albumin 2.2 g/dL (3.9-5); BUN/Creatinine Ratio 12; Blood Urea Nitrogen 7 mg/dL (7-17); Calcium 7.4 mg/dL (8.4-10.2); Hemolysis Index 3
[2020-06-02] MEDS ORDERED: SODIUM CHLORIDE 0.9% 1000 ML 1,000 ML ONE (08:19)
[2020-06-02] MEDS: FERROUS SULFATE 325 MG TAB PO SCH (09:53)
[2020-06-02] MEDS: PRENATAL VIT27-FE FUMARATE-FOLIC ACID VIT TAB PO SCH (09:53)
[2020-06-02] MEDS: levoFLOXacin 500 MG TAB PO SCH (09:53)
[2020-06-02] MEDS ORDERED: SODIUM CHLORIDE 0.9% 1000 ML 1,000 ML IV SCH (12:45)
--- NOTE | 2020-06-02 13:03 | Consultation ---
History of Present Illness - Reason for Consult Consult date: 06/02/20 - History of Present Illness This is a 39-year-old with 3 previous sections who presented with spontaneous rupture of membranes at 37 weeks. 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 Patient was noted to have further treatment with massive blood transfusion. Patient had acute blood loss anemia and dilution coagulopathy. Patient was managed in the ICU by soft hat binder and then later transferred to the floor yesterday. Today, at approximately 1210, patient developed left-sided chest pain while bathing. Patient denies any shortness of breath, nausea or vomiting. Patient denies any relation to exertional activity. Patient reports the pain is new onset and no previous chest pain. No cough or cold-like symptoms. Patient is exquisitely tender to palpation in the left anterior chest wall. Past History Past Medical History: No medical history, anemia Past Surgical History: Social history: Family history: no significant family history Medications and Allergies Allergies Allergy/AdvReac Type Severity Reaction Status Date / Time No Known Allergies Allergy Verified 10/21/14 11:23 Home Medications Medication Instructions Recorded Confirmed Last Taken Type Iron 1 tab PO DAILY 10/21/14 05/28/20 05/24/20 21:00 History Ondansetron [Zofran] 4 mg PO Q6HR PRN 10/21/14 06/01/20 05/24/20 20:00 History Vits96/Iron Fum/Folic 1 each PO QDAY 10/21/14 05/28/20 05/24/20 History [ Tablet] Active Meds: Active Medications Acetaminophen (Tylenol) 650 mg PO Q4H PRN PRN Reason: Fever >100.5/HOLLOWAY Last Admin: 06/01/20 02:26 Dose: 650 mg Documented by: Acetaminophen/Hydrocodone Bitart (Boyd 5/325) 1 each PO Q6H PRN PRN Reason: Pain, Moderate (4-6) Last Admin: 05/31/20 05:52 Dose: 1 each Documented by: Ferrous Sulfate (Feosol) 325 mg PO QDAY ISAIAS Last Admin: 06/02/20 09:53 Dose: 325 mg Documented by: Oxytocin/Sodium Chloride (Pitocin/Ns 20 Unit/1000ml Drip) 20 units in 1,000 mls @ 125 mls/hr IV DIRECT ISAIAS Last Admin: 05/30/20 09:02 Dose: 125 mls/hr Documented by: Sodium Chloride (Nacl 0.9% 1000 Ml) 1,000 mls @ 75 mls/hr IV DIRECT ISAIAS Levofloxacin (Levaquin) 500 mg PO Q24HR [facility] Last Admin: 06/02/20 09:53 Dose: 500 mg Documented by: Methylergonovine Maleate (Methergine) 0.2 mg IM Q4H PRN PRN Reason: Uterine Bleeding Last Admin: 05/29/20 10:36 Dose: 0.2 mg Documented by: Morphine Sulfate (Morphine) 4 mg IV Q4H PRN PRN Reason: Pain , Severe (7-10) Last Admin: 06/01/20 17:30 Dose: 4 mg Documented by: Multi-Ingredient Ointment (Lansinoh) 1 applic TP PRN PRN PRN Reason: dryness/cracking Last Admin: 06/02/20 09:54 Dose: 1 applic Documented by: Multivitamins/Iron/Calcium ( Vitamin) 1 each PO QDAY [facility] Last Admin: 06/02/20 09:53 Dose: 1 each Documented by: Naloxone HCl (Naloxone) 0.1 mg IV Q2MIN PRN PRN Reason: Res Rate </= 8 or 02 SAT < 92% Ondansetron HCl (Zofran) 4 mg IV Q8H PRN PRN Reason: Nausea And Vomiting Sodium Chloride (Sodium Chloride Flush Syringe 10 Ml) 10 ml IV PRN PRN PRN Reason: LINE FLUSH Sodium Chloride (Sodium Chloride Flush Syringe 10 Ml) 10 ml IV PRN PRN PRN Reason: LINE FLUSH Witch Lauren/Glycerin (Tucks Pad) 1 each TP PRN PRN PRN Reason: Hemorrhoids/cleansing/soothing Review of Systems All systems: negative Exam - Constitutional Vitals: Temp Pulse Resp BP Pulse Ox 98.6 F 85 20 137/81 93 06/02/20 08:29 06/02/20 08:29 06/02/20 08:29 06/02/20 08:29 06/02/20 08:29 General appearance: Present: no acute distress, well-nourished - EENT Eyes: Present: PERRL ENT: hearing intact, clear oral mucosa - Neck Neck: Present: supple, normal ROM - Respiratory Respiratory effort: normal Respiratory: bilateral: CTA - Cardiovascular Heart Sounds: Present: S1 & S2. Absent: rub, click - Extremities Extremities: pulses symmetrical, No edema Peripheral Pulses: within normal limits - Abdominal General gastrointestinal: Present: soft, non-tender, non-distended, normal bowel sounds Female genitourinary: Present: normal - Integumentary Integumentary: Present: clear, warm, dry - Musculoskeletal Musculoskeletal: gait normal, strength equal bilaterally - Psychiatric Psychiatric: appropriate mood/affect, intact judgment & insight - Neurologic Neurologic: CNII-XII intact, moves all extremities Results - Labs CBC & Chem 7: 06/02/20 05:41 06/02/20 05:41 Labs: Abnormal lab results 05/28/20 06/02/20 06/02/20 Range/Units 19:45 05:41 05:41 WBC 15.5 H (4.5-11.0) K/mm3 RBC 3.41 L (3.65-5.03) M/mm3 Hgb 9.6 L (10.1-14.3) gm/dl RDW 18.5 H (13.2-15.2) % Potassium 3.5 L (3.6-5.0) mmol/L Carbon Dioxide 17 L (22-30) mmol/L Creatinine 0.6 L (0.7-1.2) mg/dL Calcium 7.4 L (8.4-10.2) mg/dL Total Protein 4.6 L (6.3-8.2) g/dL Albumin 2.2 L (3.9-5) g/dL Crossmatch See Detail Assessment and Plan Chest pain. Check echocardiogram, EKG and stat troponin. Etiology is likely costochondritis. Patient is exquisitely tender on exam to palpation of the anterior chest wall. Check d-dimer. Consider CTA of the chest but will risk stratify with d-dimer given that the patient only has one kidney. Acute blood loss anemia. Follow-up H&H and transfuse as needed. 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 Secondary to above. Leukocytosis. Etiology likely stress-induced/leukemoid reaction
--- NOTE | 2020-06-02 13:24 | Progress Note ---
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 Subjective - Subjective Date of service: 06/02/20 Principal diagnosis: PP hemorrhage, Early DIC Interval history: previous sections. LEIGHTON June 12, 2020. Delivered by 05/28/2020 with susequent post hemorrhage controlled with transfusion of 8 units of prbc, cryo, uterine arterial embolization, icu admission. patient was transferred back to mother [facility] baby yesterday. She is ambulating around the floor, eating well, and comfortable with her surgical pain mgt. She had no complaints. Patient reports: no vaginal bleeding Objective - Vital Signs Vital Signs: Vital Signs - 12hr 06/02/20 06/02/20 06/02/20 02:30 03:30 05:26 Temperature Pulse Rate Respiratory 16 18 18 Rate Blood Pressure O2 Sat by Pulse Oximetry 06/02/20 06/02/20 05:46 08:29 Temperature 98.7 F 98.6 F Pulse Rate 83 85 Respiratory 20 20 Rate Blood Pressure 137/83 137/81 O2 Sat by Pulse 92 93 Oximetry - Exam Lungs: Normal air movement Abdomen: Present: normal appearance, soft, normal bowel sounds. Absent: tenderness, guarding - Labs Labs: Abnormal Labs 05/28/20 05/28/20 05/29/20 19:45 19:45 05:20 WBC 11.5 H RBC 3.47 L Hgb 8.0 L 5.0 L* D Hct 24.5 L 15.5 L* D MCV 71 L MCH 23 L RDW 15.8 H Plt Count Lymph % (Auto) [place]minn % (Auto) 10.9 H Mcminn # 1.3 H Seg Neutrophils % Seg Neuts % (Manual) Lymphocytes % (Manual) Seg Neutrophils # Seg Neutrophils # Man Monocytes # (Manual) INR Fibrinogen Sodium Potassium Chloride Carbon Dioxide Creatinine Glucose Calcium ALT Total Protein Albumin Crossmatch See Detail 05/29/20 05/29/20 05/29/20 06:45 16:29 16:29 WBC 29.1 H RBC 3.33 L Hgb 7.9 L 9.5 L Hct 23.8 L D 28.4 L MCV MCH RDW 18.7 H Plt Count 67 L Lymph % (Auto) [place]min[place] % (Auto) Mcminn # Seg Neutrophils % Seg Neuts % (Manual) 89.0 H Lymphocytes % (Manual) 4.0 L Seg Neutrophils # Seg Neutrophils # Man 25.9 H Monocytes # (Manual) 1.7 H INR 1.18 H Fibrinogen 167 L Sodium Potassium Chloride Carbon Dioxide Creatinine Glucose Calcium ALT Total Protein Albumin Crossmatch 05/29/20 05/30/20 05/30/20 16:29 00:50 06:00 WBC 20.0 H RBC 2.42 L Hgb 7.2 L 6.8 L Hct 21.3 L D 20.6 L MCV MCH RDW 17.7 H Plt Count 59 L Lymph % (Auto) 6.7 L [place] % (Auto) 9.1 H Mcminn # 1.8 H Seg Neutrophils % 84.1 H Seg Neuts % (Manual) Lymphocytes % (Manual) Seg Neutrophils # 16.9 H Seg Neutrophils # Man Monocytes # (Manual) INR Fibrinogen Sodium 134 L Potassium Chloride Carbon Dioxide 19 L Creatinine Glucose Calcium 6.9 L D ALT Total Protein 4.1 L D Albumin 2.6 L Crossmatch 05/30/20 05/30/20 05/30/20 06:00 13:45 20:50 WBC 18.8 H RBC 2.52 L Hgb 7.3 L Hct 21.8 L MCV MCH RDW 18.0 H Plt Count 69 L Lymph % (Auto) [place] % (Auto) [place]minn # Seg Neutrophils % Seg Neuts % (Manual) Lymphocytes % (Manual) Seg Neutrophils # Seg Neutrophils # Man Monocytes # (Manual) INR Fibrinogen Sodium Potassium Chloride Carbon Dioxide 20 L Creatinine 0.6 L 0.6 L Glucose 111 H Calcium 6.7 L ALT 6 L Total Protein 4.1 L Albumin 2.4 L Crossmatch 05/30/20 05/31/20 05/31/20 20:50 02:45 11:30 WBC 17.8 H 15.1 H 17.7 H RBC 2.41 L 2.39 L 2.94 L Hgb 7.1 L 6.7 L 8.4 L Hct 20.8 L 20.7 L 25.4 L MCV MCH RDW 17.9 H 18.2 H 17.6 H Plt Count 85 L 80 L 94 L Lymph % (Auto) [place]min[place] % (Auto) Mcminn # Seg Neutrophils % Seg Neuts % (Manual) Lymphocytes % (Manual) Seg Neutrophils # Seg Neutrophils # Man Monocytes # (Manual) INR Fibrinogen Sodium Potassium Chloride Carbon Dioxide Creatinine Glucose Calcium ALT Total Protein Albumin Crossmatch 06/01/20 06/01/20 06/02/20 06:00 06:00 05:41 WBC 18.0 H 15.5 H RBC 2.89 L 3.41 L Hgb 8.2 L 9.6 L Hct 25.1 L MCV MCH RDW 17.9 H 18.5 H Plt Count 113 L Lymph % (Auto) 8.7 L [place] % (Auto) 10.2 H Mcminn # 1.8 H Seg Neutrophils % 80.2 H Seg Neuts % (Manual) Lymphocytes % (Manual) Seg Neutrophils # 14.4 H Seg Neutrophils # Man Monocytes # (Manual) INR Fibrinogen Sodium Potassium 3.1 L Chloride 108.3 H Carbon Dioxide 20 L Creatinine Glucose Calcium 7.1 L ALT Total Protein 4.3 L Albumin 2.1 L Crossmatch 06/02/20 05:41 WBC RBC Hgb Hct MCV MCH RDW Plt Count Lymph % (Auto) [place] % (Auto) [place]minn # Seg Neutrophils % Seg Neuts % (Manual) Lymphocytes % (Manual) Seg Neutrophils # Seg Neutrophils # Man Monocytes # (Manual) INR Fibrinogen Sodium Potassium 3.5 L Chloride Carbon Dioxide 17 L Creatinine 0.6 L Glucose Calcium 7.4 L ALT Total Protein 4.6 L Albumin 2.2 L Crossmatch Laboratory Results - last 24 hr 05/28/20 06/02/20 06/02/20 19:45 05:41 05:41 WBC 15.5 H RBC 3.41 L Hgb 9.6 L Hct 30.6 MCV 90 MCH 28 MCHC 31 RDW 18.5 H Plt Count 181 Lymph % (Auto) Territory Representative [place]n % (Auto) Territory Representative Eos % (Auto) Territory Representative Baso % (Auto) Territory Representative Lymph # Territory Representative [place]minn # Territory Representative Eos # Territory Representative Baso # Territory Representative Seg Neutrophils % Territory Representative Seg Neutrophils # Territory Representative Sodium 139 Potassium 3.5 L Chloride 105.0 Carbon Dioxide 17 L Anion Gap 21 BUN 7 Creatinine 0.6 L Estimated GFR > 60 BUN/Creatinine Ratio 12 Glucose 77 Calcium 7.4 L Total Bilirubin 0.80 AST 18 ALT 10 Alkaline Phosphatase 71 Total Protein 4.6 L Albumin 2.2 L Albumin/Globulin Ratio 0.9 Crossmatch See Detail
--- NOTE | 2020-06-02 13:38 | Event Note ---
Date: 05/29/20 Initiated management for post hemorrhage hours after delivery. With a low preop hemoglobin and surgical EBL of 800 cc, transfusion of prbc was begun. Derrick Operator was called to establish secure extra iv access. The uterus was firmly contracted all the time as periodic pooling of blood was seen in the perineum. Patient was alert during the period. Dr Ordoñez was notified in the taxi servicer of patient's likely ongoing needs.
[2020-06-02 14:47] LABS: Basophils # (Auto) 0.1 K/mm3 (0.0-0.1); Basophils % (Auto) 0.5 % (0.0-1.8); Eosinophils # (Auto) 0.2 K/mm3 (0.0-0.4); Eosinophils % (Auto) 1.1 % (0.0-4.3); Hematocrit 28.4 % (30.3-42.9); Hemoglobin 9.4 gm/dl (10.1-14.3); Lymphocytes # (Auto) 1.5 K/mm3 (1.2-5.4); Lymphocytes % (Auto) 9.8 % (13.4-35.0); Mean Corpuscular HGB Conc 33 % (30-34); Mean Corpuscular Volume 86 fl (79-97); Monocytes # (Auto) 1.4 K/mm3 (0.0-0.8); Monocytes % (Auto) 8.9 % (0.0-7.3); Platelet Count 197 K/mm3 (140-440); Red Blood Count 3.32 M/mm3 (3.65-5.03); Red Cell Distribution Width 17.9 % (13.2-15.2)
--- NOTE | 2020-06-02 14:47 | Progress Note ---
Assessment and Plan 39-year-old female with severe hemorrhage after c section requiring resuscitation and subsequently IR was consulted. Status post uterine artery embolization with Gelfoam with findings of right proximal uterine artery pseudoaneurysm on angiography. Her left upper extremity has a palpable radial pulse without evidence of hemat marina or pseudoaneurysm. Patient is complaining of left upper chest chest pain which has now resolved. Her left lower extremity has slightly more swelling compared to the right. Her triple-lumen from the left groin has been removed. I will obtain a venous ultrasound to confirm no DVT. Chest pain per primary/hospitalist service. hemorrhage appears to be well controlled with Gelfoam embolization. Patient will follow-up in 2 weeks. Card provided. I will perform a repeat angiogram to ensure that the pseudoaneurysm has resolved in 4 to 6 weeks. Subjective Date of service: 06/02/20 Principal diagnosis: PP hemorrhage, Early DIC Interval history: Patient having some mild left arm swelling and left lower extremity swelling. Complained earlier of some left upper chest pain which is being evaluated by the hospitalist. She has a palpable left radial artery without evidence of hematoma or pseudoaneurysm. She has palpable dorsalis pedis pulses bilaterally. Her vaginal bleeding has greatly decreased since the procedure was performed and is now at the "expected" level per patient. Patient has had 6 children and reports that this is the normal amount of vaginal bleeding she has had after her deliveries. Objective - Constitutional Vitals: Vital Signs - 12hr 06/02/20 06/02/20 06/02/20 03:30 05:26 05:46 Temperature 98.7 F Pulse Rate 83 Respiratory 18 18 20 Rate Blood Pressure 137/83 O2 Sat by Pulse 92 Oximetry 06/02/20 08:29 Temperature 98.6 F Pulse Rate 85 Respiratory 20 Rate Blood Pressure 137/81 O2 Sat by Pulse 93 Oximetry General appearance: Present: no acute distress - EENT Eyes: EOM intact ENT: hearing intact - Respiratory Respiratory effort: normal Extremities: abnormal (see subjective) - Psychiatric Psychiatric: appropriate mood/affect, cooperative - Labs CBC & Chem 7: 06/02/20 05:41 06/02/20 05:41 Labs: Abnormal lab results 05/28/20 06/02/20 06/02/20 Range/Units 19:45 05:41 05:41 WBC 15.5 H (4.5-11.0) K/mm3 RBC 3.41 L (3.65-5.03) M/mm3 Hgb 9.6 L (10.1-14.3) gm/dl RDW 18.5 H (13.2-15.2) % Potassium 3.5 L (3.6-5.0) mmol/L Carbon Dioxide 17 L (22-30) mmol/L Creatinine 0.6 L (0.7-1.2) mg/dL Calcium 7.4 L (8.4-10.2) mg/dL Total Protein 4.6 L (6.3-8.2) g/dL Albumin 2.2 L (3.9-5) g/dL Crossmatch See Detail Medications & Allergies - Medications Allergies/Adverse Reactions: Allergies No Known Allergies Allergy (Verified 10/21/14 11:23) Home Medications: Home Medications Medication Instructions Recorded Confirmed Last Taken Type Iron 1 tab PO DAILY 10/21/14 05/28/20 05/24/20 21:00 History Ondansetron [Zofran] 4 mg PO Q6HR PRN 10/21/14 06/01/20 05/24/20 20:00 History Vits96/Iron Fum/Folic 1 each PO QDAY 10/21/14 05/28/20 05/24/20 History [ Tablet] Active Medications: Generic Name Dose Route Start Last Admin Trade Name Freq PRN Reason Stop Dose Admin Acetaminophen 650 mg 05/29/20 00:27 06/01/20 02:26 Tylenol PO 650 mg Q4H PRN Administration Fever >100.5/HOLLOWAY Acetaminophen/Hydrocodone Bitart 1 each 05/29/20 00:27 05/31/20 05:52 Weaver 5/325 PO 1 each Q6H PRN Administration Pain, Moderate (4-6) Ferrous Sulfate 325 mg 05/29/20 10:00 06/02/20 09:53 Feosol PO 325 mg QDAY ISAIAS Administration Oxytocin/Sodium Chloride 20 units in 1,000 mls @ 125 mls/hr 05/29/20 21:00 05/30/20 09:02 Pitocin/Ns 20 Unit/1000ml Drip IV 125 mls/hr DIRECT ISAIAS Administration Sodium Chloride 1,000 mls @ 75 mls/hr 06/02/20 12:45 Nacl 0.9% 1000 Ml IV DIRECT ISAIAS Levofloxacin 500 mg 05/30/20 10:00 06/02/20 09:53 Levaquin PO 500 mg Q24HR ISAIAS Administration Methylergonovine Maleate 0.2 mg 05/29/20 09:43 05/29/20 10:36 Methergine IM 0.2 mg Q4H PRN Administration Uterine Bleeding Morphine Sulfate 4 mg 05/29/20 00:27 06/01/20 17:30 Morphine IV 4 mg Q4H PRN Administration Pain , Severe (7-10) Multi-Ingredient Ointment 1 applic 05/29/20 00:27 06/02/20 09:54 Lansinoh TP 1 applic PRN PRN Administration dryness/cracking Multivitamins/Iron/Calcium 1 each 05/29/20 10:00 06/02/20 09:53 Vitamin PO 1 each QDAY ISAIAS Administration Naloxone HCl 0.1 mg 05/31/20 10:38 Naloxone IV Q2MIN PRN Res Rate </= 8 or 02 SAT < 92% Ondansetron HCl 4 mg 05/29/20 00:27 Zofran IV Q8H PRN Nausea And Vomiting Sodium Chloride 10 ml 05/29/20 01:00 Sodium Chloride Flush Syringe 10 Ml IV PRN PRN LINE FLUSH Sodium Chloride 10 ml 06/02/20 12:34 Sodium Chloride Flush Syringe 10 Ml IV PRN PRN LINE FLUSH Witch Lauren/Glycerin 1 each 05/29/20 00:27 Tucks Pad TP PRN PRN Hemorrhoids/cleansing/soothing
[2020-06-02 14:56] LABS: BUN/Creatinine Ratio 10; Blood Urea Nitrogen 7 mg/dL (7-17); Calcium 7.5 mg/dL (8.4-10.2); Hemolysis Index 2
--- NOTE | 2020-06-02 19:06 | Vascular Lab Report ---
DUPLEX DOPPLER LOWER EXTREMITY VEINS, LEFT INDICATION: swelling. TECHNIQUE: Duplex doppler imaging was performed through the veins of the left lower extremity using venous compr ession and other maneuvers. COMPARISON: None available. FINDINGS: Common femoral vein: Negative. Superficial femoral vein: Negative. Popliteal vein: Negative. Calf veins: Negative. Additional findings: None. IMPRESSION: Negative for DVT. Signer Name: Adriano Blas MD Signed: 06/02/2020 7:02 PM Workstation Name: [employer]
[2020-06-02] MEDS ORDERED: HYDROcodone/ACETAMINOPHEN 5-325 MG TAB PO PRN (19:59)
--- NOTE | 2020-06-02 20:12 | Progress Note ---
Assessment and Plan Patient alert, awake. Resting on room air. O2 saturation 100% 0n room air. No complaint of shortness of breath or cough. Complaining non specific chest pains. Venous doppler study of left leg reported negative for DVT. Echocardiogram repor t pending. Obtaining chest xray. Recommend SCDs - Patient Problems (1) S/P section Current Visit: Yes Status: Acute Plan to address problem: Patient stable. No complaint of shortness of breath or cough. 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 (2) Anemia Current Visit: Yes Status: Acute Plan to address problem: HGB 9.4, HCT 28.4. Improved. Management as per primary care and hematology. (3) Thrombocytopenia Current Visit: Yes Status: Acute Plan to address problem: Improved. Todays platelet count [id number]. Management as per primary care and Hematology. Subjective Date of service: 06/02/20 Principal diagnosis: PP hemorrhage, Early DIC Interval history: Patient alert, awake. Resting on room air. O2 saturation 100% 0n room air. No complaint of shortness of breath or cough. Complaining non specific chest pains. Venous doppler study of left leg reported negative for DVT. Echocardiogram report pending. Obtaining chest xray. Recommend SCDs. Objective Vital Signs - 12hr 06/02/20 06/02/20 06/02/20 08:29 08:30 10:10 Temperature 98.6 F Pulse Rate 85 Respiratory 20 20 20 Rate Blood Pressure 137/81 Blood Pressure [Right] O2 Sat by Pulse 93 Oximetry 06/02/20 06/02/20 06/02/20 12:00 12:10 14:20 Temperature 98.5 F Pulse Rate 76 Respiratory 18 20 20 Rate Blood Pressure Blood Pressure 144/79 [Right] O2 Sat by Pulse 98 Oximetry 06/02/20 06/02/20 06/02/20 15:16 16:30 18:10 Temperature 99.6 F Pulse Rate 83 Respiratory 20 18 20 Rate Blood Pressure 153/89 Blood Pressure [Right] O2 Sat by Pulse 94 Oximetry Constitutional: no acute distress, alert, other (sitting up in bed.) Eyes: non-icteric ENT: oropharynx moist Neck: supple, no lymphadenopathy Effort: normal Ascultation: Bilateral: diminished breath sounds Cardiovascular: regular rate and rhythm, other (S1, S2) Gastrointestinal: normoactive bowel sounds, soft, tender (suprapubic wiht firm uterus) Integumentary: normal, other (Left femoral CVC) Extremities: no cyanosis, no edema, pink and warm, pulses normal Neurologic: normal mental status, non-focal exam, pupils equal and round, CN II- XII normal, motor strength normal and Psychiatric: mood appropriate, affect normal CBC and BMP: 06/02/20 13:40 06/02/20 13:40 ABG, PT/INR, D-dimer: PT/INR, D-dimer PT 14.8 Sec. (12.2-14.9) 05/29/20 16:29 INR 1.18 (0.87-1.13) H 05/29/20 16:29 D-Dimer 3448.69 ng/mlDDU (0-234) H 06/02/20 13:40 Abnormal lab findings: Abnormal Labs 05/28/20 05/28/20 05/29/20 19:45 19:45 05:20 WBC 11.5 H RBC 3.47 L Hgb 8.0 L 5.0 L* D Hct 24.5 L 15.5 L* D MCV 71 L MCH 23 L RDW 15.8 H Plt Count Lymph % (Auto) [place] % (Auto) 10.9 H [place] # 1.3 H Seg Neutrophils % Seg Neuts % (Manual) Lymphocytes % (Manual) Seg Neutrophils # Seg Neutrophils # Man Monocytes # (Manual) INR Fibrinogen D-Dimer Sodium Potassium Chloride Carbon Dioxide Creatinine Glucose Calcium ALT Total Protein Albumin Crossmatch See Detail 05/29/20 05/29/20 05/29/20 06:45 16:29 16:29 WBC 29.1 H RBC 3.33 L Hgb 7.9 L 9.5 L Hct 23.8 L D 28.4 L MCV MCH RDW 18.7 H Plt Count 67 L Lymph % (Auto) [place] % (Auto) [place] # Seg Neutrophils % Seg Neuts % (Manual) 89.0 H Lymphocytes % (Manual) 4.0 L Seg Neutrophils # Seg Neutrophils # Man 25.9 H Monocytes # (Manual) 1.7 H INR 1.18 H Fibrinogen 167 L D-Dimer Sodium Potassium Chloride Carbon Dioxide Creatinine Glucose Calcium ALT Total Protein Albumin Crossmatch 05/29/20 05/30/20 05/30/20 16:29 00:50 06:00 WBC 20.0 H RBC 2.42 L Hgb 7.2 L 6.8 L Hct 21.3 L D 20.6 L MCV MCH RDW 17.7 H Plt Count 59 L Lymph % (Auto) 6.7 L [place] % (Auto) 9.1 H [place] # 1.8 H Seg Neutrophils % 84.1 H Seg Neuts % (Manual) Lymphocytes % (Manual) Seg Neutrophils # 16.9 H Seg Neutrophils # Man Monocytes # (Manual) INR Fibrinogen D-Dimer Sodium 134 L Potassium Chloride Carbon Dioxide 19 L Creatinine Glucose Calcium 6.9 L D ALT Total Protein 4.1 L D Albumin 2.6 L Crossmatch 05/30/20 05/30/20 05/30/20 06:00 13:45 20:50 WBC 18.8 H RBC 2.52 L Hgb 7.3 L Hct 21.8 L MCV MCH RDW 18.0 H Plt Count 69 L Lymph % (Auto) [place] % (Auto) [place] # Seg Neutrophils % Seg Neuts % (Manual) Lymphocytes % (Manual) Seg Neutrophils # Seg Neutrophils # Man Monocytes # (Manual) INR Fibrinogen D-Dimer Sodium Potassium Chloride Carbon Dioxide 20 L Creatinine 0.6 L 0.6 L Glucose 111 H Calcium 6.7 L ALT 6 L Total Protein 4.1 L Albumin 2.4 L Crossmatch 05/30/20 05/31/20 05/31/20 20:50 02:45 11:30 WBC 17.8 H 15.1 H 17.7 H RBC 2.41 L 2.39 L 2.94 L Hgb 7.1 L 6.7 L 8.4 L Hct 20.8 L 20.7 L 25.4 L MCV MCH RDW 17.9 H 18.2 H 17.6 H Plt Count 85 L 80 L 94 L Lymph % (Auto) [place] % (Auto) [place] # Seg Neutrophils % Seg Neuts % (Manual) Lymphocytes % (Manual) Seg Neutrophils # Seg Neutrophils # Man Monocytes # (Manual) INR Fibrinogen D-Dimer Sodium Potassium Chloride Carbon Dioxide Creatinine Glucose Calcium ALT Total Protein Albumin Crossmatch 06/01/20 06/01/20 06/02/20 06:00 06:00 05:41 WBC 18.0 H 15.5 H RBC 2.89 L 3.41 L Hgb 8.2 L 9.6 L Hct 25.1 L MCV MCH RDW 17.9 H 18.5 H Plt Count 113 L Lymph % (Auto) 8.7 L [place] % (Auto) 10.2 H [place] # 1.8 H Seg Neutrophils % 80.2 H Seg Neuts % (Manual) Lymphocytes % (Manual) Seg Neutrophils # 14.4 H Seg Neutrophils # Man Monocytes # (Manual) INR Fibrinogen D-Dimer Sodium Potassium 3.1 L Chloride 108.3 H Carbon Dioxide 20 L Creatinine Glucose Calcium 7.1 L ALT Total Protein 4.3 L Albumin 2.1 L Crossmatch 06/02/20 06/02/20 06/02/20 05:41 13:40 13:40 WBC 15.3 H RBC 3.32 L Hgb 9.4 L Hct 28.4 L MCV MCH RDW 17.9 H Plt Count Lymph % (Auto) 9.8 L [place] % (Auto) 8.9 H [place] # 1.4 H Seg Neutrophils % 79.7 H Seg Neuts % (Manual) Lymphocytes % (Manual) Seg Neutrophils # 12.2 H Seg Neutrophils # Man Monocytes # (Manual) INR Fibrinogen D-Dimer Sodium Potassium 3.5 L 3.4 L Chloride Carbon Dioxide 17 L 17 L Creatinine 0.6 L Glucose Calcium 7.4 L 7.5 L ALT Total Protein 4.6 L Albumin 2.2 L Crossmatch 06/02/20 13:40 WBC RBC Hgb Hct MCV MCH RDW Plt Count Lymph % (Auto) [place] % (Auto) [place] # Seg Neutrophils % Seg Neuts % (Manual) Lymphocytes % (Manual) Seg Neutrophils # Seg Neutrophils # Man Monocytes # (Manual) INR Fibrinogen D-Dimer 3448.69 H Sodium Potassium Chloride Carbon Dioxide Creatinine Glucose Calcium ALT Total Protein Albumin Crossmatch Prior PFT's, U/S of legs: report reviewed, image reviewed Additional Studies: DUPLEX DOPPLER LOWER EXTREMITY VEINS, LEFT 06/02/20 INDICATION: swelling. TECHNIQUE: Duplex doppler imaging was performed through the veins of the left lower extremity using venous compression and other maneuvers. COMPARISON: None available. FINDINGS: Common femoral vein: Negative. Superficial femoral vein: Negative. Popliteal vein: Negative. Calf veins: Negative. Additional findings: None. IMPRESSION: Negative for DVT. Allied health notes reviewed: nursing
[2020-06-02] MEDS: IBUPROFEN 800 MG TAB PO PRN (20:54)
[2020-06-03] MEDS: ACETAMINOPHEN 325 MG TAB PO PRN ×2 (02:04→09:18)
[2020-06-03] MEDS: IBUPROFEN 800 MG TAB PO PRN ×2 (05:23→16:02)
[2020-06-03] MEDS: PRENATAL VIT27-FE FUMARATE-FOLIC ACID VIT TAB PO SCH (09:10)
[2020-06-03] MEDS: FERROUS SULFATE 325 MG TAB PO SCH (09:10)
[2020-06-03] MEDS: levoFLOXacin 500 MG TAB PO SCH (09:10)
--- NOTE | 2020-06-03 10:54 | Progress Note ---
Assessment and Plan - Patient Problems (1) SROM (spontaneous rupture of membranes) Current Visit: Yes Status: Acute (2) Previous section Current Visit: No Status: Acute (3) Post-operative state Current Visit: Yes Status: Acute (4) S/P section Current Visit: Yes Status: Acute Plan to address problem: Surgically stable. Investigation of chest pain ongoing. Discharge planning to start. Subjective - Subjective Principal diagnosis: PP hemorrhage, Early DIC Interval history: previous sections. LEIGHTON June 12, 2020. Delivered by 05/28/2020 with susequent post hemorrhage controlled with transfusion of 8 units of prbc, cryo, uterine arterial embolization, icu admission. patient was transferred back to mother [facility] baby yesterday. She is ambulating around the floor, eating well, and comfortable with her surgical pain mgt. She had no complaints. Patient was evaluated for left chest pain yesterday afternoon. Consult notes reviewed. K+ levels noted and po KCL ordered. 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 Internists and Cardiology evaluations still in progress. Objective - Vital Signs Latest vital signs: Vital Signs Temp Pulse Resp BP BP Pulse Ox 06/03/20 08:22 97.8 F 65 20 149/89 98 06/03/20 05:14 98.0 F 67 20 141/77 97 06/03/20 01:37 98.4 F 73 20 136/77 94 06/02/20 20:49 83 151/90 97 06/02/20 18:10 20 06/02/20 16:30 18 06/02/20 15:16 99.6 F 83 20 153/89 94 06/02/20 14:20 20 06/02/20 12:10 98.5 F 76 20 144/79 98 06/02/20 12:00 18 Intake and Output 06/02/20 06/03/20 06/03/20 23:59 07:59 15:59 Intake Total 240 240 240 Balance 240 240 240 Intake: Oral 240 240 240 Other: Total, Intake Amount 120 120 240 # Voids Void 1 1 1 - Exam Lungs: Present: Normal air movement Extremities: Present: normal Incision: Present: normal, intact - Labs Labs: Abnormal lab results 06/02/20 06/02/20 06/02/20 Range/Units 13:40 13:40 13:40 WBC 15.3 H (4.5-11.0) K/mm3 RBC 3.32 L (3.65-5.03) M/mm3 Hgb 9.4 L (10.1-14.3) gm/dl Hct 28.4 L (30.3-42.9) % RDW 17.9 H (13.2-15.2) % Lymph % (Auto) 9.8 L (13.4-35.0) % Daniels % (Auto) 8.9 H (0.0-7.3) % Daniels # 1.4 H (0.0-0.8) K/mm3 Seg Neutrophils % 79.7 H (40.0-70.0) % Seg Neutrophils # 12.2 H (1.8-7.7) K/mm3 D-Dimer 3448.69 H (0-234) ng/mlDDU Potassium 3.4 L (3.6-5.0) mmol/L Carbon Dioxide 17 L (22-30) mmol/L Calcium 7.5 L (8.4-10.2) mg/dL
[2020-06-03] MEDS ORDERED: POTASSIUM CHLORIDE ER 10 MEQ TAB PO SCH (11:00)
--- NOTE | 2020-06-03 11:08 | Progress Note ---
Assessment and Plan Assessment and plan: Chest pain. Check echocardiogram, EKG and stat troponin. Etiology is likely costochondritis. Patient is exquisitely tender on exam to palpation of the anterior chest wall. Check d-dimer. Consider CTA of the chest but will risk stratify with d-dimer given that the patient only has one kidney. Acute blood loss anemia. Follow-up H&H and transfuse as needed. 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 Secondary to above. Leukocytosis. Etiology likely stress-induced/leukemoid reaction. 06/03/2020. Await echocardiogram results. Patient did have elevated d-dimer but bilateral lower extremity Dopplers negative. Patient refusing CTA at this time. Etiology of chest pain likely costochondritis. Troponin within normal limits. Cardiology consultation pending History Interval history: No new issues overnight. Hospitalist Physical - Constitutional Vitals: Temp Pulse Resp BP Pulse Ox 97.8 F 65 20 149/89 98 06/03/20 08:22 06/03/20 08:22 06/03/20 08:22 06/03/20 08:22 06/03/20 08:22 General appearance: Present: no acute distress - EENT Eyes: Present: PERRL, EOM intact ENT: hearing intact, clear oral mucosa, dentition normal - Neck Neck: Present: supple, normal ROM - Respiratory Respiratory effort: normal Respiratory: bilateral: CTA - Cardiovascular Rhythm: regular Heart Sounds: Present: S1 & S2. Absent: gallop, rub - Extremities Extremities: no ischemia, No edema, Full ROM - Abdominal General gastrointestinal: soft, non-tender, non-distended, normal bowel sounds - Integumentary Integumentary: Present: clear, warm, dry - Neurologic Neurologic: CNII-XII intact, moves all extremities HEART Score - HEART Score Troponin: Troponin T < 0.010 ng/mL (0.00-0.029) 06/02/20 13:40 Results - Labs CBC & Chem 7: 06/02/20 13:40 06/02/20 13:40 Labs: Laboratory Last Values WBC 15.3 K/mm3 (4.5-11.0) H 06/02/20 13:40 RBC 3.32 M/mm3 (3.65-5.03) L 06/02/20 13:40 Hgb 9.4 gm/dl (10.1-14.3) L 06/02/20 13:40 Hct 28.4 % (30.3-42.9) L 06/02/20 13:40 MCV 86 fl (79-97) 06/02/20 13:40 MCH 28 pg (28-32) 06/02/20 13:40 MCHC 33 % (30-34) 06/02/20 13:40 RDW 17.9 % (13.2-15.2) H 06/02/20 13:40 Plt Count 197 K/mm3 (140-440) 06/02/20 13:40 Lymph % (Auto) 9.8 % (13.4-35.0) L 06/02/20 13:40 [place] % (Auto) 8.9 % (0.0-7.3) H 06/02/20 13:40 Eos % (Auto) 1.1 % (0.0-4.3) 06/02/20 13:40 Baso % (Auto) 0.5 % (0.0-1.8) 06/02/20 13:40 Lymph # 1.5 K/mm3 (1.2-5.4) 06/02/20 13:40 [place] # 1.4 K/mm3 (0.0-0.8) H 06/02/20 13:40 Eos # 0.2 K/mm3 (0.0-0.4) 06/02/20 13:40 Baso # 0.1 K/mm3 (0.0-0.1) 06/02/20 13:40 Add Manual Diff Complete 05/29/20 16:29 Total Counted 100 05/29/20 16:29 Seg Neutrophils % 79.7 % (40.0-70.0) H 06/02/20 13:40 Seg Neuts % (Manual) 89.0 % (40.0-70.0) H 05/29/20 16:29 Band Neutrophils % 0 % 05/29/20 16:29 Lymphocytes % (Manual) 4.0 % (13.4-35.0) L 05/29/20 16:29 Reactive Lymphs % (Man) 0 % 05/29/20 16:29 Monocytes % (Manual) 6.0 % (0.0-7.3) 05/29/20 16:29 Eosinophils % (Manual) 0 % (0.0-4.3) 05/29/20 16:29 Basophils % (Manual) 0 % (0.0-1.8) 05/29/20 16:29 Metamyelocytes % 1.0 % 05/29/20 16:29 Myelocytes % 0 % 05/29/20 16:29 Promyelocytes % 0 % 05/29/20 16:29 Blast Cells % 0 % 05/29/20 16:29 Nucleated RBC % Not Reportable 05/29/20 16:29 Seg Neutrophils # 12.2 K/mm3 (1.8-7.7) H 06/02/20 13:40 Seg Neutrophils # Man 25.9 K/mm3 (1.8-7.7) H 05/29/20 16:29 Band Neutrophils # 0.0 K/mm3 05/29/20 16:29 Lymphocytes # (Manual) 1.2 K/mm3 (1.2-5.4) 05/29/20 16:29 Abs React Lymphs (Man) 0.0 K/mm3 05/29/20 16:29 Monocytes # (Manual) 1.7 K/mm3 (0.0-0.8) H 05/29/20 16:29 Eosinophils # (Manual) 0.0 K/mm3 (0.0-0.4) 05/29/20 16:29 Basophils # (Manual) 0.0 K/mm3 (0.0-0.1) 05/29/20 16:29 Metamyelocytes # 0.3 K/mm3 05/29/20 16:29 Myelocytes # 0.0 K/mm3 05/29/20 16:29 Promyelocytes # 0.0 K/mm3 05/29/20 16:29 Blast Cells # 0.0 K/mm3 05/29/20 16:29 WBC Morphology Not Reportable 05/29/20 16:29 Hypersegmented Neuts Not Reportable 05/29/20 16:29 Hyposegmented Neuts Not Reportable 05/29/20 16:29 Hypogranular Neuts Not Reportable 05/29/20 16:29 Smudge Cells Not Reportable 05/29/20 16:29 Toxic Granulation Not Reportable 05/29/20 16:29 Toxic Vacuolation Not Reportable 05/29/20 16:29 Dohle Bodies Not Reportable 05/29/20 16:29 Pelger-Huet Anomaly Not Reportable 05/29/20 16:29 Girma Rods Not Reportable 05/29/20 16:29 Platelet Estimate Consistent w auto 05/29/20 16:29 Clumped Platelets Not Reportable 05/29/20 16:29 Plt Clumps, EDTA Not Reportable 05/29/20 16:29 Large Platelets Not Reportable 05/29/20 16:29 Giant Platelets Not Reportable 05/29/20 16:29 Platelet Satelliting Not Reportable 05/29/20 16:29 Plt Morphology Comment Not Reportable 05/29/20 16:29 RBC Morphology Not Reportable 05/29/20 16:29 Dimorphic RBCs Not Reportable 05/29/20 16:29 Polychromasia Few 05/29/20 16:29 Hypochromasia Not Reportable 05/29/20 16:29 Poikilocytosis Not Reportable 05/29/20 16:29 Anisocytosis 1+ 05/29/20 16:29 Microcytosis Few 05/29/20 16:29 Macrocytosis Few 05/29/20 16:29 Spherocytes Not Reportable 05/29/20 16:29 Pappenheimer Bodies Not Reportable 05/29/20 16:29 Sickle Cells Not Reportable 05/29/20 16:29 Target Cells Not Reportable 05/29/20 16:29 Tear Drop Cells Rare 05/29/20 16:29 Ovalocytes Not Reportable 05/29/20 16:29 Helmet Cells Not Reportable 05/29/20 16:29 [place] Bodies Not Reportable 05/29/20 16:29 [place] Rings Not Reportable 05/29/20 16:29 [place] Cells Not Reportable 05/29/20 16:29 Bite Cells Not Reportable 05/29/20 16:29 Crenated Cell Not Reportable 05/29/20 16:29 Elliptocytes Few 05/29/20 16:29 Acanthocytes (Spur) Not Reportable 05/29/20 16:29 Rouleaux Not Reportable 05/29/20 16:29 Hemoglobin C Crystals Not Reportable 05/29/20 16:29 Schistocytes Rare 05/29/20 16:29 Malaria parasites Not Reportable 05/29/20 16:29 Daniele Bodies Not Reportable 05/29/20 16:29 Hem Pathologist Commnt No 05/29/20 16:29 PT 14.8 Sec. (12.2-14.9) 05/29/20 16:29 INR 1.18 (0.87-1.13) H 05/29/20 16:29 APTT 27.3 Sec. (24.2-36.6) 05/29/20 16:29 Fibrinogen 288 mg/dl (211-480) 05/30/20 06:00 D-Dimer 3448.69 ng/mlDDU (0-234) H 06/02/20 13:40 Sodium 139 mmol/L (137-145) 06/02/20 13:40 Potassium 3.4 mmol/L (3.6-5.0) L 06/02/20 13:40 Chloride 105.9 mmol/L (98-107) 06/02/20 13:40 Carbon Dioxide 17 mmol/L (22-30) L 06/02/20 13:40 Anion Gap 20 mmol/L 06/02/20 13:40 BUN 7 mg/dL (7-17) 06/02/20 13:40 Creatinine 0.7 mg/dL (0.7-1.2) 06/02/20 13:40 Estimated GFR > 60 ml/min 06/02/20 13:40 BUN/Creatinine Ratio 10 % 06/02/20 13:40 Glucose 83 mg/dL (65-100) 06/02/20 13:40 Calcium 7.5 mg/dL (8.4-10.2) L 06/02/20 13:40 Total Bilirubin 0.80 mg/dL (0.1-1.2) 06/02/20 05:41 AST 18 units/L (5-40) 06/02/20 05:41 ALT 10 units/L (7-56) 06/02/20 05:41 Alkaline Phosphatase 71 units/L (35-129) 06/02/20 05:41 Troponin T < 0.010 ng/mL (0.00-0.029) 06/02/20 13:40 Total Protein 4.6 g/dL (6.3-8.2) L 06/02/20 05:41 Albumin 2.2 g/dL (3.9-5) L 06/02/20 05:41 Albumin/Globulin Ratio 0.9 % 06/02/20 05:41 Syphilis IgG Antibody Nonreactive (NonReactive) 05/28/20 21:06 Blood Type A POSITIVE 05/28/20 19:45 Antibody Screen Negative 05/28/20 19:45 Crossmatch See Detail 05/28/20 19:45 Rand/IV: Voiding Method Indwelling Catheter IV Catheter Type [Left INT / Saline Lock Antecubital] Active Medications - Current Medications Current Medications: Generic Name Dose Route Start Last Admin Trade Name Freq PRN Reason Stop Dose Admin Acetaminophen 650 mg 05/29/20 00:27 06/03/20 09:18 Tylenol PO 650 mg Q4H PRN Administration Fever >100.5/HOLLOWAY Ferrous Sulfate 325 mg 05/29/20 10:00 06/03/20 09:10 Feosol PO 325 mg QDAY ISAIAS Administration Oxytocin/Sodium Chloride 20 units in 1,000 mls @ 125 mls/hr 05/29/20 21:00 05/30/20 09:02 Pitocin/Ns 20 Unit/1000ml Drip IV 125 mls/hr DIRECT ISAIAS Administration Sodium Chloride 1,000 mls @ 75 mls/hr 06/02/20 12:45 Nacl 0.9% 1000 Ml IV DIRECT ISAIAS Ibuprofen 800 mg 06/02/20 19:59 06/03/20 05:23 Ibuprofen PO 800 mg Q8H PRN Administration Pain, Mild (1-3) Levofloxacin 500 mg 05/30/20 10:00 06/03/20 09:10 Levaquin PO 500 mg Q24HR ISAIAS Administration Methylergonovine Maleate 0.2 mg 05/29/20 09:43 05/29/20 10:36 Methergine IM 0.2 mg Q4H PRN Administration Uterine Bleeding Morphine Sulfate 4 mg 05/29/20 00:27 06/01/20 17:30 Morphine IV 4 mg Q4H PRN Administration Pain , Severe (7-10) Multi-Ingredient Ointment 1 applic 05/29/20 00:27 06/02/20 09:54 Lansinoh TP 1 applic PRN PRN Administration dryness/cracking Multivitamins/Iron/Calcium 1 each 05/29/20 10:00 06/03/20 09:10 Vitamin PO 1 each QDAY ISAIAS Administration Naloxone HCl 0.1 mg 05/31/20 10:38 Naloxone IV Q2MIN PRN Res Rate </= 8 or 02 SAT < 92% Ondansetron HCl 4 mg 05/29/20 00:27 Zofran IV Q8H PRN Nausea And Vomiting Oxycodone/Acetaminophen 2 tab 06/03/20 11:30 Percocet 5/325 PO Q6H PRN Pain, Moderate (4-6) Potassium Chloride 10 meq 06/03/20 11:00 K-Dur PO QDAY ISAIAS Sodium Chloride 10 ml 05/29/20 01:00 Sodium Chloride Flush Syringe 10 Ml IV PRN PRN LINE FLUSH Sodium Chloride 10 ml 06/02/20 12:34 Sodium Chloride Flush Syringe 10 Ml IV PRN PRN LINE FLUSH Witch Lauren/Glycerin 1 each 05/29/20 00:27 Tucks Pad TP PRN PRN Hemorrhoids/cleansing/soothing
[2020-06-03] MEDS ORDERED: oxyCODONE /ACETAMINOPHEN 5-325MG TAB PO PRN (11:30)
[2020-06-03] MEDS ORDERED: MAGNESIUM HYDROXIDE (MOM) ORAL LIQD UDC PO PRN (12:21)
--- NOTE | 2020-06-03 13:19 | Progress Note ---
Assessment and Plan Patient alert, awake. Resting on room air. O2 saturation 98% 0n room air. No complaint of shortness of breath or cough. Venous doppler study of left leg reported negative for DVT. Echocardiogram report pending. Obtaining chest xray. Recommend SCDs - Patient Problems (1) S/P section Current Visit: Yes Status: Acute Plan to address problem: Patient stable. No complaint of shortness of breath or cough. Post Operative Mangement as per [employer]. (2) Anemia Current Visit: Yes Status: Acute Plan to address problem: HGB 9.4, HCT 28.4. Improved. Management as per primary care and hematology. (3) Thrombocytopenia Current Visit: Yes Status: Acute Plan to address problem: Improved. platelet count [id number]. Management as per primary care and Hematology. Subjective Date of service: 06/03/20 Principal diagnosis: PP hemorrhage, Early DIC Interval history: Patient alert, awake. Resting on room air. O2 saturation 98% 0n room air. No complaint of shortness of breath or cough or chest pain.Venous doppler study of left leg reported negative for DVT. Echocardiogram report pending. Obtaining chest xray. Recommend SCDs. Objective Vital Signs - 12hr 06/03/20 06/03/20 06/03/20 01:37 05:14 08:22 Temperature 98.4 F 98.0 F 97.8 F Pulse Rate 73 67 65 Respiratory 20 20 20 Rate Blood Pressure 136/77 141/77 149/89 O2 Sat by Pulse 94 97 98 Oximetry Constitutional: no acute distress, alert, other (sitting up in bed.) Eyes: non-icteric ENT: oropharynx moist Neck: supple, no lymphadenopathy Effort: normal Ascultation: Bilateral: diminished breath sounds Cardiovascular: regular rate and rhythm, other (S1, S2) Gastrointestinal: normoactive bowel sounds, soft, tender (suprapubic wiht firm uterus) Integumentary: normal, other (Left femoral CVC) Extremities: no cyanosis, no edema, pink and warm, pulses normal Neurologic: normal mental status, non-focal exam, pupils equal and round, CN II- XII normal, motor strength normal and Psychiatric: mood appropriate, affect normal CBC and BMP: 06/02/20 13:40 06/02/20 13:40 ABG, PT/INR, D-dimer: PT/INR, D-dimer PT 14.8 Sec. (12.2-14.9) 05/29/20 16:29 INR 1.18 (0.87-1.13) H 05/29/20 16:29 D-Dimer 3448.69 ng/mlDDU (0-234) H 06/02/20 13:40 Abnormal lab findings: Abnormal Labs 05/28/20 05/28/20 05/29/20 19:45 19:45 05:20 WBC 11.5 H RBC 3.47 L Hgb 8.0 L 5.0 L* D Hct 24.5 L 15.5 L* D MCV 71 L MCH 23 L RDW 15.8 H Plt Count Lymph % (Auto) [place] % (Auto) 10.9 H [place] # 1.3 H Seg Neutrophils % Seg Neuts % (Manual) Lymphocytes % (Manual) Seg Neutrophils # Seg Neutrophils # Man Monocytes # (Manual) INR Fibrinogen D-Dimer Sodium Potassium Chloride Carbon Dioxide Creatinine Glucose Calcium ALT Total Protein Albumin Crossmatch See Detail 05/29/20 05/29/20 05/29/20 06:45 16:29 16:29 WBC 29.1 H RBC 3.33 L Hgb 7.9 L 9.5 L Hct 23.8 L D 28.4 L MCV MCH RDW 18.7 H Plt Count 67 L Lymph % (Auto) [place] % (Auto) [place] # Seg Neutrophils % Seg Neuts % (Manual) 89.0 H Lymphocytes % (Manual) 4.0 L Seg Neutrophils # Seg Neutrophils # Man 25.9 H Monocytes # (Manual) 1.7 H INR 1.18 H Fibrinogen 167 L D-Dimer Sodium Potassium Chloride Carbon Dioxide Creatinine Glucose Calcium ALT Total Protein Albumin Crossmatch 05/29/20 05/30/20 05/30/20 16:29 00:50 06:00 WBC 20.0 H RBC 2.42 L Hgb 7.2 L 6.8 L Hct 21.3 L D 20.6 L MCV MCH RDW 17.7 H Plt Count 59 L Lymph % (Auto) 6.7 L [place] % (Auto) 9.1 H [place] # 1.8 H Seg Neutrophils % 84.1 H Seg Neuts % (Manual) Lymphocytes % (Manual) Seg Neutrophils # 16.9 H Seg Neutrophils # Man Monocytes # (Manual) INR Fibrinogen D-Dimer Sodium 134 L Potassium Chloride Carbon Dioxide 19 L Creatinine Glucose Calcium 6.9 L D ALT Total Protein 4.1 L D Albumin 2.6 L Crossmatch 05/30/20 05/30/20 05/30/20 06:00 13:45 20:50 WBC 18.8 H RBC 2.52 L Hgb 7.3 L Hct 21.8 L MCV MCH RDW 18.0 H Plt Count 69 L Lymph % (Auto) [place] % (Auto) [place] # Seg Neutrophils % Seg Neuts % (Manual) Lymphocytes % (Manual) Seg Neutrophils # Seg Neutrophils # Man Monocytes # (Manual) INR Fibrinogen D-Dimer Sodium Potassium Chloride Carbon Dioxide 20 L Creatinine 0.6 L 0.6 L Glucose 111 H Calcium 6.7 L ALT 6 L Total Protein 4.1 L Albumin 2.4 L Crossmatch 05/30/20 05/31/20 05/31/20 20:50 02:45 11:30 WBC 17.8 H 15.1 H 17.7 H RBC 2.41 L 2.39 L 2.94 L Hgb 7.1 L 6.7 L 8.4 L Hct 20.8 L 20.7 L 25.4 L MCV MCH RDW 17.9 H 18.2 H 17.6 H Plt Count 85 L 80 L 94 L Lymph % (Auto) [place] % (Auto) [place] # Seg Neutrophils % Seg Neuts % (Manual) Lymphocytes % (Manual) Seg Neutrophils # Seg Neutrophils # Man Monocytes # (Manual) INR Fibrinogen D-Dimer Sodium Potassium Chloride Carbon Dioxide Creatinine Glucose Calcium ALT Total Protein Albumin Crossmatch 06/01/20 06/01/20 06/02/20 06:00 06:00 05:41 WBC 18.0 H 15.5 H RBC 2.89 L 3.41 L Hgb 8.2 L 9.6 L Hct 25.1 L MCV MCH RDW 17.9 H 18.5 H Plt Count 113 L Lymph % (Auto) 8.7 L [place] % (Auto) 10.2 H [place] # 1.8 H Seg Neutrophils % 80.2 H Seg Neuts % (Manual) Lymphocytes % (Manual) Seg Neutrophils # 14.4 H Seg Neutrophils # Man Monocytes # (Manual) INR Fibrinogen D-Dimer Sodium Potassium 3.1 L Chloride 108.3 H Carbon Dioxide 20 L Creatinine Glucose Calcium 7.1 L ALT Total Protein 4.3 L Albumin 2.1 L Crossmatch 06/02/20 06/02/20 06/02/20 05:41 13:40 13:40 WBC 15.3 H RBC 3.32 L Hgb 9.4 L Hct 28.4 L MCV MCH RDW 17.9 H Plt Count Lymph % (Auto) 9.8 L [place] % (Auto) 8.9 H [place] # 1.4 H Seg Neutrophils % 79.7 H Seg Neuts % (Manual) Lymphocytes % (Manual) Seg Neutrophils # 12.2 H Seg Neutrophils # Man Monocytes # (Manual) INR Fibrinogen D-Dimer Sodium Potassium 3.5 L 3.4 L Chloride Carbon Dioxide 17 L 17 L Creatinine 0.6 L Glucose Calcium 7.4 L 7.5 L ALT Total Protein 4.6 L Albumin 2.2 L Crossmatch 06/02/20 13:40 WBC RBC Hgb Hct MCV MCH RDW Plt Count Lymph % (Auto) [place] % (Auto) [place] # Seg Neutrophils % Seg Neuts % (Manual) Lymphocytes % (Manual) Seg Neutrophils # Seg Neutrophils # Man Monocytes # (Manual) INR Fibrinogen D-Dimer 3448.69 H Sodium Potassium Chloride Carbon Dioxide Creatinine Glucose Calcium ALT Total Protein Albumin Crossmatch Allied health notes reviewed: nursing
--- NOTE | 2020-06-03 13:32 | Consultation ---
History of Present Illness Consult date: 06/03/20 Consult reason: chest pain History of present illness: ,3 previous sections. LEIGHTON June 12, 2020. Delivered by 0 05/28/2020 with susequent post hemorrhage controlled with transfusion of 8 units of prbc, cryo, uterine arterial embolization, icu admission. patient was transferred back to [facility] yesterday. She is ambulating around the floor, eating well, and comfortable with her surgical pain mgt. She had no complaints. Venous doppler study of left leg reported negative for DVT.Chart reviewed. 06/03/2020>Called in consultation because of left sided chest pain of 1 day duration.left precordial area,sharp pains,lasting an hour,minimal SOB . EKG done 06/02/2020 and again 06/03/2020 are showing S.R,wnl.Troponin i x1 is in normal range. No previous cardiac history,no hx.of Hypertension or diabetes or asthma,or PE or cva. Past History Past Medical History: No medical history, anemia Past Surgical History: Social history: Family history: no significant family history Medications and Allergies Allergies Allergy/AdvReac Type Severity Reaction Status Date / Time No Known Allergies Allergy Verified 10/21/14 11:23 Home Medications Medication Instructions Recorded Confirmed Last Taken Type Iron 1 tab PO DAILY 10/21/14 05/28/20 05/24/20 21:00 History Ondansetron [Zofran] 4 mg PO Q6HR PRN 10/21/14 06/01/20 05/24/20 20:00 History Vits96/Iron Fum/Folic 1 each PO QDAY 10/21/14 05/28/20 05/24/20 History [ Tablet] oxyCODONE /ACETAMINOPHEN [Percocet 1 - 2 tab PO Q6HR PRN #30 tablet 06/03/20 Unknown Rx 5/325] Active Meds: Active Medications Acetaminophen (Tylenol) 650 mg PO Q4H PRN PRN Reason: Fever >100.5/HOLLOWAY Last Admin: 06/03/20 09:18 Dose: 650 mg Documented by: Ferrous Sulfate (Feosol) 325 mg PO QDAY ISAIAS Last Admin: 06/03/20 09:10 Dose: 325 mg Documented by: Oxytocin/Sodium Chloride (Pitocin/Ns 20 Unit/1000ml Drip) 20 units in 1,000 mls @ 125 mls/hr IV DIRECT [facility] Last Admin: 05/30/20 09:02 Dose: 125 mls/hr Documented by: Sodium Chloride (Nacl 0.9% 1000 Ml) 1,000 mls @ 75 mls/hr IV DIRECT [facility] Ibuprofen (Ibuprofen) 800 mg PO Q8H PRN PRN Reason: Pain, Mild (1-3) Last Admin: 06/03/20 05:23 Dose: 800 mg Documented by: Levofloxacin (Levaquin) 500 mg PO Q24HR [facility] Last Admin: 06/03/20 09:10 Dose: 500 mg Documented by: Magnesium Hydroxide (Milk Of Magnesia) 30 ml PO Q8H PRN PRN Reason: Constipation Methylergonovine Maleate (Methergine) 0.2 mg IM Q4H PRN PRN Reason: Uterine Bleeding Last Admin: 05/29/20 10:36 Dose: 0.2 mg Documented by: Morphine Sulfate (Morphine) 4 mg IV Q4H PRN PRN Reason: Pain , Severe (7-10) Last Admin: 06/01/20 17:30 Dose: 4 mg Documented by: Multi-Ingredient Ointment (Lansinoh) 1 applic TP PRN PRN PRN Reason: dryness/cracking Last Admin: 06/02/20 09:54 Dose: 1 applic Documented by: Multivitamins/Iron/Calcium ( Vitamin) 1 each PO QDAY [facility] Last Admin: 06/03/20 09:10 Dose: 1 each Documented by: Naloxone HCl (Naloxone) 0.1 mg IV Q2MIN PRN PRN Reason: Res Rate </= 8 or 02 SAT < 92% Ondansetron HCl (Zofran) 4 mg IV Q8H PRN PRN Reason: Nausea And Vomiting Oxycodone/Acetaminophen (Percocet 5/325) 2 tab PO Q6H PRN PRN Reason: Pain, Moderate (4-6) Last Admin: 06/03/20 12:33 Dose: 2 tab Documented by: Potassium Chloride (K-Dur) 10 meq PO QDAY [facility] Last Admin: 06/03/20 11:38 Dose: 10 meq Documented by: Sodium Chloride (Sodium Chloride Flush Syringe 10 Ml) 10 ml IV PRN PRN PRN Reason: LINE FLUSH Sodium Chloride (Sodium Chloride Flush Syringe 10 Ml) 10 ml IV PRN PRN PRN Reason: LINE FLUSH Witch Lauren/Glycerin (Tucks Pad) 1 each TP PRN PRN PRN Reason: Hemorrhoids/cleansing/soothing Review of Systems Constitutional: no fever Ears, nose, mouth and throat: no ear discharge Respiratory: no cough Gastrointestinal: no nausea Menstruation: other (s/p c section.) Integumentary: no rash Neurological: no seizures Psychiatric: no anxiety Endocrine: no heat intolerance Hematologic/Lymphatic: no easy bruising Allergic/Immunologic: no urticaria Physical Examination Vital Signs Pulse BP 78 114/72 05/28/20 18:09 05/28/20 18:09 General appearance: no acute distress HEENT: Positive: PERRL Neck: Positive: neck supple, trachea midline Cardiac: Positive: Reg Rate and Rhythm. Negative: Audible Murmur Lungs: Positive: Decreased Breath Sounds Neuro: Positive: Grossly Intact Abdomen: Positive: Soft Skin: Negative: Rash Extremities: Present: +1 Edema Results 06/02/20 13:40 06/02/20 13:40 CBC 06/02/20 Range/Units 13:40 WBC 15.3 H (4.5-11.0) K/mm3 RBC 3.32 L (3.65-5.03) M/mm3 Hgb 9.4 L (10.1-14.3) gm/dl Hct 28.4 L (30.3-42.9) % Plt Count 197 (140-440) K/mm3 Lymph # 1.5 (1.2-5.4) K/mm3 [place] # 1.4 H (0.0-0.8) K/mm3 Eos # 0.2 (0.0-0.4) K/mm3 Baso # 0.1 (0.0-0.1) K/mm3 Comprehensive Metabolic Panel 06/02/20 Range/Units 13:40 Sodium 139 (137-145) mmol/L Potassium 3.4 L (3.6-5.0) mmol/L Chloride 105.9 (98-107) mmol/L Carbon Dioxide 17 L (22-30) mmol/L BUN 7 (7-17) mg/dL Creatinine 0.7 (0.7-1.2) mg/dL Glucose 83 (65-100) mg/dL Calcium 7.5 L (8.4-10.2) mg/dL EKG interpretations - EKG Sinus rhythms and dysrhythmias: sinus rhythm (,WNL.) Assessment and Plan 39 yo,post C- section with significant blood loss requiring 8 units of PRBC,FFP,s/p embolization,presently hemodynamically stable. Having left sided sharp chest pains along with tenderness ,intermittent,EKG's done 06/02/2020 and 06/03/2020 are WNL,one set of troponin is in normal range.Echocardiogram showed large pleural effusion with normal LV systolic funct ion. With above findings and low risk for CAD,feel patient's chest pains are non ischemic. Patient may be discharged home from cardiac status.I advised patient to call and make an appointment for f/u in next few months,once she recovers from present hospitalization.Patient is aggreable with plan.
--- NOTE | 2020-06-03 15:47 | XRay Report ---
CHEST 2 VIEWS INDICATION / CLINICAL INFORMATION: Difficulty breathing, postoperative status. COMPARISON: None available. FINDINGS: SUPPORT DEVICES: None. HEART / MEDIASTINUM: No significant abnormality. LUNGS / PLEURA: Small pleural effusions are seen with bibasilar atelectasis. No pneumothorax. ADDITIONAL FINDINGS: No significant additional findings. IMPRESSION: Small pleural effusions. Signer Name: Donal Vega MD Signed: 06/03/2020 3:43 PM Workstation Name: [id number]
--- NOTE | 2020-06-03 16:53 | Discharge Summary ---
Providers - Providers Date of Admission: 05/28/20 23:30 Date of discharge: 06/03/20 Attending physician: ANKIT ROLLE MD 05/29/20 20:36 Consult to Physician [CONS] Routine Comment: Consulting Provider: KAMALJIT GARCIA Physician Instructions: Reason For Exam: ICU Admission 06/02/20 Consult to Cardiac Rehabilitation [CONS] Routine Reason For Exam: Phase I 06/02/20 12:24 Consult to Physician [CONS] Stat Comment: to call Dr Kb jesus Consulting Provider: JIMMY NOLAN Physician Instructions: Reason For Exam: chest pain 06/02/20 12:34 Consult to Cardiology [CONS] Routine Consulting Provider: AMARILYS BARKLEY Reason For Exam: CP Primary care physician: ANKIT ROLLE MD Hospitalization Reason for admission: section, other (SROM, Previous cesareans.) Delivery: Procedure: repeat low transverse Other procedures: other ( hemorrhage, blood transfusions, uterine arterial embolizations, ICU admission) complications: transfusion, other (Uterine arterial aneurysm) Discharge diagnosis: IUP at term delivered Hospital course: with hemorrhage controlled by uterine arterial embolizations. Managed in the ICU until stable for regular floor. Investigated 06/02/2020for chest pain and has instructions to f/u with pulmonology and cardiology. Condition at discharge: Good Disposition: DC-01 TO HOME OR SELFCARE - Discharge Diagnoses (1) SROM (spontaneous rupture of membranes) Status: Acute (2) Previous section Status: Acute (3) Post-operative state Status: Acute (4) S/P section Status: Acute (5) hemorrhage Status: Acute Plan - Discharge Medications Prescriptions: oxyCODONE /ACETAMINOPHEN [Percocet 5/325] 1 - 2 tab PO Q6HR PRN #30 tablet PRN Reason: Pain - Provider Discharge Summary Activity: routine, no sex for 6 weeks Instructions: other (collect and take Levoquinfrom pharmacy at [phone].) Additional instructions: [] Smoking cessation referral if applicable(refer to patient education folder for contact #) [] Refer to [facility]'s [facility] Booklet Call your doctor immediately for: * Fever > 100.5 * Heavy vaginal bleeding ( >1 pad per hour) * Severe persistent headache * Shortness of breath * Reddened, hot, painful area to leg or breast * Drainage or odor from incision. * Keep incision clean and dry at all times and follow doctor's instructions regarding bathing/showering - Follow up plan Follow up: ANKIT ROLLE MD [Primary Care Provider] - 7 Days
[2020-06-03 18:28] VITALS: BP 127/84
== END 2020-06-03 18:30 | disposition home or self-care (01) | DRG 765 ==
LOC: APU 17:47 → TRG 17:47 → APU 23:30 → TRG 23:30 → OB 05-29 02:56 → LD 05-29 12:25 → CC1 05-29 18:01 → OB 06-01 15:45
PROVIDERS: ADMIT Obstetrics & Gynecology; ATTEND Obstetrics & Gynecology
PROC: 10D00Z1 Extraction of Products of Conception, Low, Open Approach (ICD-10-PCS; principal; 2020-05-29)
PROC: 04L Lower Arteries, Occlusion (ICD-10-PCS; 2020-05-29)
PROC: 04LF3ZU Occlusion of Left Uterine Artery, Percutaneous Approach (ICD-10-PCS; 2020-05-29)
PROC: 30233K1 Transfusion of Nonautologous Frozen Plasma into Peripheral Vein, Percutaneous Approach (ICD-10-PCS; 2020-05-29)
PROC: 30233N1 Transfusion of Nonautologous Red Blood Cells into Peripheral Vein, Percutaneous Approach (ICD-10-PCS; 2020-05-29)
PROC: 06HY33Z Insertion of Infusion Device into Lower Vein, Percutaneous Approach (ICD-10-PCS; 2020-05-29)
PROC: B51C1ZZ Fluoroscopy of Left Lower Extremity Veins using Low Osmolar Contrast (ICD-10-PCS; 2020-05-29)
PROC: 30233R1 Transfusion of Nonautologous Platelets into Peripheral Vein, Percutaneous Approach (ICD-10-PCS; 2020-05-30)
PROC: 30233M1 Transfusion of Nonautologous Plasma Cryoprecipitate into Peripheral Vein, Percutaneous Approach (ICD-10-PCS; 2020-05-31)
DX: O34.211 Maternal care for low transverse scar from previous cesarean delivery (principal); O72.1 Other immediate postpartum hemorrhage; D62 Acute posthemorrhagic anemia; J90 Pleural effusion, not elsewhere classified; Z3A.38 38 weeks gestation of pregnancy; Z37.0 Single live birth; D69.6 Thrombocytopenia, unspecified; O72.3 Postpartum coagulation defects; O99.53 Diseases of the respiratory system complicating the puerperium; O99.02 Anemia complicating childbirth
CPT/HCPCS: 36415; 36556; 37242; 37243; 71046; 75710; 76937; 80048; 80053; 82565; 84484; 85007; 85014; 85018; 85025; 85027; 85379; 85384; 85610; 85730; 86592; 86850; 86900; 86901; 86920; 93005; 93306; 94760; G0378; A4649; A6250; C1751; C1769; C1887; C1894; J0690; J1170; J1644; J1885; J1940; J2210; J2250; J2270; J2405; J2590; J2765; J3010; J3411; J3490; J7030; J7040; J7120; J7121; P9012; P9016; P9017; P9035; Q9967